=== PATIENT | female | born 1940 | race Caucasian/White ===

== ENCOUNTER → 2018-05-06 18:49 | Outpatient (REF) | payer OTHER, SELFPAY | LOC: LAB 18:49 | PROVIDERS: PCP Family Medicine; Visit Provider Podiatrist | DX: L84 Corns and callosities (principal); M20.42 Other hammer toe(s) (acquired), left foot; M79.675 Pain in left toe(s) | CPT/HCPCS: 87070; 87075; 87205 ==

== ENCOUNTER 2021-06-19 17:38 | Inpatient (IN) | payer OTHER, SELFPAY ==
[2021-06-19] VITALS (13 sets, daily range): BP systolic 106–109; BP diastolic 59–80; PULSE 84–95; RESP 24; TEMP 37.4; O2SAT 88–99; BMI 28.3
[2021-06-19 18:26] LABS: Add Manual Diff / Slide Review NO; Basophils Absolute Auto 100 /uL (0-100); Basophils Percent Auto 0.8 % (0-2); Eosinophils Absolute Auto 300 /uL (0-450); Eosinophils Percent Auto 2.2 % (2-4); Hemoglobin 11.3 g/dL (12.0-16.0); Lymphocytes Absolute Auto 1400 /uL (1100-4500); Mean Corpuscular HGB Conc 33.2 % (30-36); Mean Corpuscular Hemoglobin 29.4 PG (26-34); Mean Corpuscular Volume 88.5 fL (80-100); Monocytes Absolute Auto 1100 /uL (0-900); Monocytes Percent Auto 9.4 % (3-14); Neutrophils Absolute Auto 9000 /uL (1500-7000); Neutrophils Percent Auto 75.6 % (50-75); Platelet Count 394 X10^3/uL (150-400); Red Blood Cell Count 3.84 X10^6/uL (4.0-5.2); Red Cell Distribution Width 16.7 % (11.6-14.8); White Blood Cell Count 11.9 X10^3/uL (4.5-11.0)
[2021-06-19 18:35] LABS: RBC Urine None Seen (0-5/HPF)
[2021-06-19 18:37] LABS: Lactate (Lactic Acid) 1.2 mmol/L (0.7-2.1)
[2021-06-19 18:38] LABS: Alanine Aminotransferase 5 IU/L (<35); Albumin 3.2 g/dL (3.5-5.0); Alkaline Phosphatase 77 U/L (38-126); Aspartate Aminotransferase 19 IU/L (14-36); BUN Creatinine Ratio 28.9 (6-22); Bilirubin Total 0.7 mg/dL (0.2-1.3); Blood Urea Nitrogen 13 mg/dL (7-17); Carbon Dioxide 29 mmol/L (22-32); Chloride 101 mmol/L (98-107); Estimated Glomerular Filt Rate > 60.0 mL/min (>60); Globulin 3.2 g/dL (1.7-4.1); Glucose 139 mg/dL (80-110); HEMOLYSIS < 15 (0-50); Lipase 70 U/L (23-300); Potassium 3.5 mmol/L (3.4-5.1); Sodium 136 mmol/L (137-145); Total Protein 6.4 g/dL (6.3-8.2)
[2021-06-19 18:54] LABS: Procalcitonin 0.09 ng/mL (<0.5)
[2021-06-19 18:55] LABS: Appearance Urine UA TURBID; Bilirubin Urine UA NEGATIVE (NEGATIVE); Color Urine UA YELLOW; Glucose Urine UA NEGATIVE (Negative); Ketones Urine UA TRACE (NEGATIVE); Leukocyte Esterase Urine UA 2+ (NEGATIVE); Nitrite Urine UA NEGATIVE (Negative); Occult Blood Urine UA 2+ (Negative); Protein Urine UA 3+ (Negative); Specific Gravity Urine UA 1.025 (1.000-1.035); Urobilinogen Urine UA 0.2 E.U./dL (0.2)
[2021-06-19 19:00] LABS: Bacteria Urine Many (>30); WBC Urine >100/HPF (0-5/HPF)
[2021-06-19 19:01] LABS: Culture Indicated Urine Specimen Cultured
[2021-06-19 19:42] LABS: COVID19 - ADMIT (NP swab/PCR) Negative (Negative)
--- NOTE | 2021-06-19 20:03 | ED.GENADULT ---
HPI - General Adult General Chief complaint: Wound/Laceration Stated complaint: Sacral Decubitus Ulcer Time Seen by Provider: 06/19/21 18:03 Source: patient and EMS Mode of arrival: EMS Limitations: altered mental status History of Present Illness HPI narrative: 81-year-old lady with a history of Parkinson's disease, hypertension whose last week was living at an assisted living facility with he even home health coming every other day to help with sacral decubitus wound care. There were reports of trying to get this woman directly [facility] a [facility] facility so that she could have daily wound care and she was instructed to go through the emergency room 1st. Her daughter is present and helps with history. She has her usual parkinsonian complaints but no new fevers, cough, chills, nausea, vomiting, diarrhea. She has a Carlin catheter chronically in place she does note that she has been somewhat constipated recently Related Data Home Medications Medication Instructions Recorded Confirmed acetaminophen 500 mg tablet 500 mg PO Q8H PRN 06/19/21 06/19/21 carbidopa 25 mg-levodopa 100 mg 1 tab PO QID 06/19/21 06/19/21 tablet cranberry extract 650 mg capsule 650 mg PO DAILY 06/19/21 06/19/21 hydrocodone 5 mg-acetaminophen 325 5 - 325 tab PO Q6H PRN 06/19/21 06/19/21 mg tablet losartan 100 mg tablet 100 mg PO DAILY 06/19/21 06/19/21 mirtazapine 15 mg tablet 15 mg PO BEDTIME 06/19/21 06/19/21 omega 1-[id number]-fish oil 1,000 mg 1 cap PO DAILY 06/19/21 06/19/21 (120 mg-180 mg) capsule (Fish Oil) simvastatin 20 mg tablet 20 mg PO BEDTIME 06/19/21 06/19/21 Allergies Allergy/AdvReac Type Severity Reaction Status Date / Time No Known Drug Allergies Allergy Verified 06/19/21 18:20 Review of Systems Review of Systems Narrative: Remainder of complete review of systems is otherwise unremarkable except for that included in the HPI. Patient History Medical History Hyperlipidemia Hypertension Parkinson's disease dementia Surgical History History of tonsillectomy Family History Other Unknown family medical history Exam Narrative Exam Narrative: General: Frail woman able to participate somewhat with exam and history HEENT: Moist mucous membranes, normal sclera with reactive pupils, Respiratory: Lungs are clear to auscultation, no wheezing no rales no rhonchi. Full and symmetrical air movement Cardiac: Regular rate and rhythm no murmurs no bruits Abdomen: Soft, nontender, good bowel tones, no flank pain Skin: Warm and dry, large deep sacral decubitus ulcer that goes to the bone with bone and necrotic tissue visible. Neurologic: Parkinsonian tremor and rigidity, blank face ease but no localizing neurologic findings Extremities: No trauma, well perfused Psych: Cooperative, appropriate insight and affect Initial Vital Signs Initial Vital Signs: Vital Signs Temperature 99.3 F 06/19/21 17:40 Pulse Rate 95 H 06/19/21 17:40 Respiratory Rate 24 06/19/21 17:40 Blood Pressure 106/59 L 06/19/21 17:40 Pulse Oximetry 94 06/19/21 17:40 Course Orders Ordered: Acetaminophen (Acetaminophen 325 Mg Tablet) 650 mg PO Q6HR PRN PRN Reason: Fever/Mild Pain (1-3) Hydrocodone Bitart/Acetaminophen (Hydrocodone/Acet 5/325 Tablet) 1 tab PO Q6H PRN PRN Reason: Pain (Scale Score 4-6) Atorvastatin Calcium (Atorvastatin 20 Mg Tablet) 10 mg PO BEDTIME SUSHILA Carbidopa/Levodopa (Carbidopa-Levodopa 25/100 Tablet) 1 each PO Q6HR SUSHILA Last Admin: 06/20/21 00:47 Dose: Not Given Documented by: Admin: 06/19/21 20:51 Dose: 1 each Documented by: PHILLIP Carbidopa/Levodopa (Carbidopa-Levodopa 25/100 Tablet) 1 each PO QID SUSHILA Last Admin: 06/19/21 22:32 Dose: Not Given Documented by: PHILLIP Lactated Ringer's (Lactated Ringers) 1,000 mls @ 100 mls/hr IV CONT SUSHILA Last Admin: 06/19/21 22:25 Dose: 100 mls/hr Documented by: PHILLIP Piperacillin Sod/Tazobactam (Sod 3.375 gm/ Sodium Chloride) 100 mls @ 25 mls/hr IV Q8H [facility] Last Admin: 06/20/21 04:02 Dose: 25 mls/hr Documented by: PHILLIP Vancomycin HCl/Dextrose (Vancomycin) 1,500 mg in 300 mls @ 150 mls/hr IV NOW [facility] Last Infusion: 06/20/21 03:49 Dose: 0 mls/hr Documented by: Admin: 06/20/21 00:45 Dose: 150 mls/hr Documented by: PHILLIP Vancomycin HCl (Vancomycin) 1,000 mg in 200 mls @ 167 mls/hr IV Q12H [facility] Losartan Potassium (Losartan 50 Mg Tablet) 100 mg PO DAILY [facility] Mirtazapine (Mirtazapine 15 Mg Tablet) 15 mg PO BEDTIME [facility] Last Admin: 06/19/21 22:47 Dose: 15 mg Documented by: PHILLIP Naloxone HCl (Naloxone 0.4 Mg/Ml Vial) 0.2 mg IV Q2MIN PRN PRN Reason: Opiate Reversal Ondansetron HCl (Ondansetron 4 Mg/2 Ml Inj) 4 mg IV Q8HR PRN PRN Reason: Nausea And Vomiting Sennosides (Sennosides 8.6 Mg Tablet) 17.2 mg PO BEDTIME [facility] Last Admin: 06/19/21 22:49 Dose: 17.2 mg Documented by: PHILLIP Vancomycin HCl (Vancomycin Per Pharmacy) 1 request MIS NOW ONE Stop: 06/20/21 00:11 Discontinued Medications Piperacillin Sod/Tazobactam (Sod 4.5 gm/ Sodium Chloride) 100 mls @ 200 mls/hr IV NOW ONE Stop: 06/19/21 20:24 Last Infusion: 06/19/21 21:15 Dose: 0 mls/hr Documented by: Admin: 06/19/21 20:43 Dose: 200 mls/hr Documented by: PHILLIP Vancomycin HCl (Vancomycin Per Pharmacy) 1 request MISC NOW ONE Stop: 06/19/21 21:24 Last Admin: 06/20/21 00:48 Dose: Not Given Documented by: PHILLIP Vital Signs Vital signs: Vital Signs - 8 hr 06/19/21 17:40 06/19/21 18:18 06/19/21 18:30 Temperature 99.3 F Pulse Rate 95 H 94 H 91 H Respiratory Rate 24 Blood Pressure 106/59 L 109/80 Pulse Oximetry 94 92 92 Medical Decision Making Lab Data Result diagrams: 06/19/21 18:00 06/19/21 18:00 Labs: Lab Results 06/19/21 06/19/21 06/19/21 Range/Units 18:00 18:00 18:00 WBC 11.9 H (4.5-11.0) X10^3/uL RBC 3.84 L (4.0-5.2) X10^6/uL Hgb 11.3 L (12.0-16.0) g/dL Hct 34.0 L (36-46) % MCV 88.5 (80-100) fL MCH 29.4 (26-34) PG MCHC 33.2 (30-36) % RDW 16.7 H (11.6-14.8) % Plt Count 394 (150-400) X10^3/uL Neut % (Auto) 75.6 H (50-75) % Lymph % (Auto) 12.0 L (25-40) % [place] % (Auto) 9.4 (3-14) % Eos % (Auto) 2.2 (2-4) % Baso % (Auto) 0.8 (0-2) % Neut # (Auto) 9000 H (0122-7499) /uL Lymph # (Auto) 1400 (4685-3103) /uL [place] # (Auto) 1100 H (0-900) /uL Eos # (Auto) 300 (0-450) /uL Baso # (Auto) 100 (0-100) /uL Sodium 136 L (137-145) mmol/L Potassium 3.5 (3.4-5.1) mmol/L Chloride 101 (98-107) mmol/L Carbon Dioxide 29 (22-32) mmol/L BUN 13 (7-17) mg/dL Creatinine 0.45 L (0.52-1.04) mg/dL Estimated GFR > 60.0 (>60) mL/min BUN/Creatinine Ratio 28.9 H (6-22) Glucose 139 H (80-110) mg/dL Lactate 1.2 (0.7-2.1) mmol/L Calcium 10.0 (8.4-10.2) mg/dL Magnesium (1.6-2.3) mg/dL Total Bilirubin 0.7 (0.2-1.3) mg/dL AST 19 (14-36) IU/L ALT 5 (<35) IU/L Alkaline Phosphatase 77 (38-126) U/L Total Protein 6.4 (6.3-8.2) g/dL Albumin 3.2 L (3.5-5.0) g/dL Globulin 3.2 (1.7-4.1) g/dL Albumin/Globulin Ratio 1.0 (1.0-2.8) Lipase 70 (23-300) U/L Procalcitonin (<0.5) ng/mL Urine Color Urine Appearance Urine pH (4.5-8.0) Ur Specific [place] (1.000-1.035) Urine Protein (Negative) Urine Glucose (UA) (Negative) g/dL Urine Ketones (NEGATIVE) Urine Occult Blood (Negative) Urine Nitrate (Negative) Urine Bilirubin (NEGATIVE) Urine Urobilinogen (0.2) E.U./dL Ur Leukocyte Esterase (NEGATIVE) Urine RBC (0-5/HPF) Urine WBC (0-5/HPF) Urine Bacteria (None) Urine Yeast (None) Ur Culture Indicated? SARS-CoV-2 (PCR) (Negative) 06/19/21 06/19/21 06/19/21 Range/Units 18:00 18:00 18:14 WBC (4.5-11.0) X10^3/uL RBC (4.0-5.2) X10^6/uL Hgb (12.0-16.0) g/dL Hct (36-46) % MCV (80-100) fL MCH (26-34) PG MCHC (30-36) % RDW (11.6-14.8) % Plt Count (150-400) X10^3/uL Neut % (Auto) (50-75) % Lymph % (Auto) (25-40) % [place] % (Auto) (3-14) % Eos % (Auto) (2-4) % Baso % (Auto) (0-2) % Neut # (Auto) (1608-1011) /uL Lymph # (Auto) (4977-7829) /uL [place] # (Auto) (0-900) /uL Eos # (Auto) (0-450) /uL Baso # (Auto) (0-100) /uL Sodium (137-145) mmol/L Potassium (3.4-5.1) mmol/L Chloride (98-107) mmol/L Carbon Dioxide (22-32) mmol/L BUN (7-17) mg/dL Creatinine (0.52-1.04) mg/dL Estimated GFR (>60) mL/min BUN/Creatinine Ratio (6-22) Glucose (80-110) mg/dL Lactate (0.7-2.1) mmol/L Calcium (8.4-10.2) mg/dL Magnesium 1.7 (1.6-2.3) mg/dL Total Bilirubin (0.2-1.3) mg/dL AST (14-36) IU/L ALT (<35) IU/L Alkaline Phosphatase (38-126) U/L Total Protein (6.3-8.2) g/dL Albumin (3.5-5.0) g/dL Globulin (1.7-4.1) g/dL Albumin/Globulin Ratio (1.0-2.8) Lipase (23-300) U/L Procalcitonin 0.09 (<0.5) ng/mL Urine Color Yellow Urine Appearance Turbid Urine pH 5.0 (4.5-8.0) Ur Specific [place] 1.025 (1.000-1.035) Urine Protein 3+ H (Negative) Urine Glucose (UA) Negative (Negative) g/dL Urine Ketones Trace H (NEGATIVE) Urine Occult Blood 2+ H (Negative) Urine Nitrate Negative (Negative) Urine Bilirubin Negative (NEGATIVE) Urine Urobilinogen 0.2 (0.2) E.U./dL Ur Leukocyte Esterase 2+ H (NEGATIVE) Urine RBC None seen (0-5/HPF) Urine WBC >100/hpf H (0-5/HPF) Urine Bacteria Many (>30) H (None) Urine Yeast 5-10/hpf H (None) Ur Culture Indicated? Specimen cultured SARS-CoV-2 (PCR) (Negative) 06/19/21 Range/Units 18:16 WBC (4.5-11.0) X10^3/uL RBC (4.0-5.2) X10^6/uL Hgb (12.0-16.0) g/dL Hct (36-46) % MCV (80-100) fL MCH (26-34) PG MCHC (30-36) % RDW (11.6-14.8) % Plt Count (150-400) X10^3/uL Neut % (Auto) (50-75) % Lymph % (Auto) (25-40) % [place] % (Auto) (3-14) % Eos % (Auto) (2-4) % Baso % (Auto) (0-2) % Neut # (Auto) (3422-0982) /uL Lymph # (Auto) (3533-3682) /uL [place] # (Auto) (0-900) /uL Eos # (Auto) (0-450) /uL Baso # (Auto) (0-100) /uL Sodium (137-145) mmol/L Potassium (3.4-5.1) mmol/L Chloride (98-107) mmol/L Carbon Dioxide (22-32) mmol/L BUN (7-17) mg/dL Creatinine (0.52-1.04) mg/dL Estimated GFR (>60) mL/min BUN/Creatinine Ratio (6-22) Glucose (80-110) mg/dL Lactate (0.7-2.1) mmol/L Calcium (8.4-10.2) mg/dL Magnesium (1.6-2.3) mg/dL Total Bilirubin (0.2-1.3) mg/dL AST (14-36) IU/L ALT (<35) IU/L Alkaline Phosphatase (38-126) U/L Total Protein (6.3-8.2) g/dL Albumin (3.5-5.0) g/dL Globulin (1.7-4.1) g/dL Albumin/Globulin Ratio (1.0-2.8) Lipase (23-300) U/L Procalcitonin (<0.5) ng/mL Urine Color Urine Appearance Urine pH (4.5-8.0) Ur Specific [place] (1.000-1.035) Urine Protein (Negative) Urine Glucose (UA) (Negative) g/dL Urine Ketones (NEGATIVE) Urine Occult Blood (Negative) Urine Nitrate (Negative) Urine Bilirubin (NEGATIVE) Urine Urobilinogen (0.2) E.U./dL Ur Leukocyte Esterase (NEGATIVE) Urine RBC (0-5/HPF) Urine WBC (0-5/HPF) Urine Bacteria (None) Urine Yeast (None) Ur Culture Indicated? SARS-CoV-2 (PCR) Negative (Negative) Imaging Data CT scan - abdomen/pelvis: Radiologist's Impression: FINDINGS: Image quality: Excellent. Lung bases: Fibrotic changes at both lung bases. There is a large paraesophageal hiatal hernia. Heart: Moderate to heavy coronary artery calcification. ABDOMEN: Liver: Unremarkable. Gallbladder: Unremarkable. Biliary ducts: Unremarkable. Pancreas: Unremarkable. Spleen: Unremarkable. Adrenal Glands: Unremarkable. Kidneys and Ureters: Unremarkable. Stomach and Bowel: Moderate quantity of solid stool present in the colon. Prominent stool ball in the rectum. There is moderate perirectal fat stranding. Stomach, small bowel loops, and colon are otherwise unremarkable. The appendix is not visible. Peritoneum: No abnormal intraperitoneal fluid. No free air. Ventral Wall: No hernias. Abdominal Nodes: No retroperitoneal or mesenteric adenopathy by size criteria. Vessels: Aorta and inferior vena cava are normal in size. PELVIS: Pelvic Organs: The uterus is present and anteriorly displaced by rectal stool ball. Bladder: Urinary bladder is decompressed with a Carlin catheter.. Pelvic Nodes: No enlarged lymph nodes. Miscellaneous: There is moderate posterior perirectal fat stranding. There is a tract from the gluteal fold through the subcutaneous tissue to the level of the sacrococcygeal articulation. There is widening of the sacrococcygeal joint, fragmentation of the distal cortex, and punctate foci of soft tissue gas. There is a thickened rim around the fluid collection which extends to involve the right gluteus muscle just to the right of midline. This area measures roughly 5.2 x 2.9 x 3.0 cm Bones: Diffuse osteopenia. There is grade 1 anterolisthesis L4 on five with bony ankylosis of the vertebral bodies resulting in angulation of the spinal canal from L3-4 to L5-S1. Moderate degenerative change in the hip joints. IMPRESSION: 1. Ulceration in the gluteal fold extends inward to involve and disrupt the sacrococcygeal joint where subcutaneous and partially intramuscular abscess is present, and there is almost certainly osteomyelitis. 2. There is prominent edema in the presacral/perirectal fat 3. Severe degenerative change of the lower lumbar spine appears chronic. 4. Colonic and rectal obstipation. Dictated by: Leatha Lopez M.D. on 06/19/2021 at 21:05 [facility] Narrative Medical decision making narrative: 81-year-old woman with indwelling Carlin catheter but abnormal urine will be cultured may be simply baseline overgrowth with Carlin catheter. Large sacral decubitus with significant necrosis will need surgical debridement and possible plastics revision. Presumed osteomyelitis of the sacrum without overt sepsis. She started on Zosyn in the emergency department. Care is reviewed with Dr. Ruiz at 8:30 p.m. he will consult on the patient for help with surgical care of the wound Care is reviewed with Ms. Jean, hospitalist CLAIRE at 8:40 p.m.. She will be the primary admitting provider for the patient. Findings and concerns are reviewed with the patient and her daughter both are relieved that she will be admitted to the hospital with more detailed care being given to her sacral wound. Will ask for a rotating or air bed to prevent worsening of the wound. Review code status with patient and her daughter, she is DNR but would be willing to consider intubation for brief surgical intervention and does want full medical care otherwise. Discharge Plan Departure Patient Disposition: Admitted As Inpatient Clinical Impression: Decubitus ulcer of sacral region, stage 4, Bacterial UTI, Abscess Osteomyelitis Qualifiers: Osteomyelitis type: other acute Osteomyelitis location: other site Qualified Code(s): M86.18 - Other acute osteomyelitis, other site Admit Date/Time: 06/19/21 21:11 Admit Provider: Josey Jean
--- NOTE | 2021-06-19 20:23 | DI.CT.S_ITS ---
PROCEDURE: CT ABDOMEN PELVIS W CON INDICATIONS: sacral decubuitus TECHNIQUE: After the administration of intravenous contrast, axial sections acquired from the lung bases to the pubic symphysis. Coronal and sagittal reformats were performed. For radiation dose reduction, the following was used: automated exposure control, adjustment of mA and/or kV according to patient size. COMPARISON: None. FINDINGS: Image quality: Excellent. Lung bases: Fibrotic changes at both lung bases. There is a large paraesophageal hiatal hernia. Heart: Moderate to heavy coronary artery calcification. ABDOMEN: Liver: Unremarkable. Gallbladder: Unremarkable. Biliary ducts: Unremarkable. Pancreas: Unremarkable. Spleen: Unremarkable. Adrenal Glands: Unremarkable. Kidneys and Ureters: Unremarkable. Stomach and Bowel: Moderate quantity of solid stool present in the colon. Prominent stool ball in the rectum. There is moderate perirectal fat stranding. Stomach, small bowel loops, and colon are otherwise unremarkable. The appendix is not visible. Peritoneum: No abnormal intraperitoneal fluid. No free air. Ventral Wall: No hernias. Abdominal Nodes: No retroperitoneal or mesenteric adenopathy by size criteria. Vessels: Aorta and inferior vena cava are normal in size. PELVIS: Pelvic Organs: The uterus is present and anteriorly displaced by rectal stool ball. Bladder: Urinary bladder is decompressed with a Carlin catheter.. Pelvic Nodes: No enlarged lymph nodes. Miscellaneous: There is moderate posterior perirectal fat stranding. There is a tract from the gluteal fold through the subcutaneous tissue to the level of the sacrococcygeal articulation. There is widening of the sacrococcygeal joint, fragmentation of the distal cortex, and punctate foci of soft tissue gas. There is a thickened rim around the fluid collection which extends to involve the right gluteus muscle just to the right of midline. This area measures roughly 5.2 x 2.9 x 3.0 cm Bones: Diffuse osteopenia. There is grade 1 anterolisthesis L4 on five with bony ankylosis of the vertebral bodies resulting in angulation of the spinal canal from L3-4 to L5-S1. Moderate degenerative change in the hip joints. IMPRESSION: 1. Ulceration in the gluteal fold extends inward to involve and disrupt the sacrococcygeal joint where subcutaneous and partially intramuscular abscess is present, and there is almost certainly osteomyelitis. 2. There is prominent edema in the presacral/perirectal fat 3. Severe degenerative change of the lower lumbar spine appears chronic. 4. Colonic and rectal obstipation. Dictated by: Leatha Lopez M.D. on 06/19/2021 at 21:05 Approved by: Leatha Lopez M.D. on 06/19/2021 at 21:15
[2021-06-19] MEDS: PIPERACILLIN/TAZO 4.5 GM in SODIUM CHLORIDE 0.9% 100 ML 200 ML IV (20:43)
[2021-06-19] MEDS: CARBIDOPA-LEVODOPA 25/100 TABLET 1 EACH PO (20:51)
[2021-06-19 21:41] LABS: Magnesium 1.7 mg/dL (1.6-2.3)
[2021-06-19] MEDS: LACTATED RINGERS 1,000 ML 100 ML IV (22:25)
[2021-06-19] MEDS: MIRTAZAPINE 15 MG TABLET PO (22:47)
[2021-06-19] MEDS: SENNOSIDES 8.6 MG TABLET 17.2 MG PO (22:49)
[2021-06-20] VITALS (31 sets, daily range): BP systolic 90–121; BP diastolic 46–71; PULSE 69–121; RESP 16–20; TEMP 36.1–36.8; O2SAT 92–98; BMI 28.3
[2021-06-20] MEDS: VANCOMYCIN 1,500 MG/300 ML PIGGYBACK 150 MG IV (00:45)
[2021-06-20] MEDS: PIPERACILLIN/TAZO 3.375 GM in SODIUM CHLORIDE 0.9% 100 ML 25 ML IV ×3 (04:02→19:50)
--- NOTE | 2021-06-20 05:21 | P.HP_ITS ---
History of Present Illness History of Present Illness Date Patient Seen: 06/19/21 Time Patient Seen: 21:31 Chief complaint: Sacral Decubitus Ulcer Narrative: Patient is an 81-year-old female Amna Dunne who presented to the ED via EMS from [facility] in [place] for a chief complaint of large sacral decubitus ulcer that is not resolving. Apparently the patient had been receiving home home health wound care visits in the facility for several weeks without resolution of this decubitus ulcer and so she was requested to come to the hospital. Patient has an altered mental status due to her diagnosis of Parkinson's and was unable to participate in her HPI or ROS. And the ED chart lacked any documentation, had no further information for this patient. Dr. Ruiz did consult in the ED and stated that she would consult on the patient in the morning. I did go down and do admit exam of the patient in the ED, patient was resting and dressing had been placed back on and I was unable to assess the decubitus ulcer appropriately at that time. Dr. Macedo did verbalize that it was a significant sacral decubitus ulcer Stage 4. Patient's vitals upon admit febrile with a temp of 99.3?, BP 109/80 which is baseline for this patient, HR 84, RR 24, O2 saturation 93% on room air. Patient had a mildly elevated WBC 11.9 with a left shift neutrophils 9000, HGB 11.3, HCT 34. Lactate, lipase, procalcitonin were all within normal limits, albumin sli ghtly decreased at 3.2. Patient urine was positive for UTI and was sent for culture patient has a catheter in, so most likely catheter related UTI. Patient was orientated to place and person but was unable to provide any further information. Patient admitted for sacral decubitus ulcer and UTI. Patient History Medical History (Updated 06/20/21 @ 05:33 by LYNDSAY Cortes) Hyperlipidemia Hypertension Parkinson's disease dementia Surgical History (Updated 06/20/21 @ 05:31 by LYNDSAY Cortes) History of tonsillectomy Family & Social History Family History (Updated 06/20/21 @ 05:32 by LYNDSAY Cortes) Other Unknown family medical history Safety & Behavioral: Feels Safe in Current Yes-patient lives at [facility] in [place], patient's spouse last week. Environment Tobacco & Substance use: Unknown if patient drinks alcohol, appears to be a nonsmoker. Meds Home Medications and Allergies Home Medications Medication Instructions Recorded Confirmed Type acetaminophen 500 mg tablet 500 mg PO Q8H PRN 06/19/21 06/19/21 History carbidopa 25 mg-levodopa 100 mg 1 tab PO QID 06/19/21 06/19/21 History tablet cranberry extract 650 mg capsule 650 mg PO DAILY 06/19/21 06/19/21 History hydrocodone 5 mg-acetaminophen 325 5 - 325 tab PO Q6H PRN 06/19/21 06/19/21 History mg tablet losartan 100 mg tablet 100 mg PO DAILY 06/19/21 06/19/21 History mirtazapine 15 mg tablet 15 mg PO BEDTIME 06/19/21 06/19/21 History omega 4-bdl-slc-fish oil 1,000 mg 1 cap PO DAILY 06/19/21 06/19/21 History (120 mg-180 mg) capsule (Fish Oil) simvastatin 20 mg tablet 20 mg PO BEDTIME 06/19/21 06/19/21 History Allergies Allergy/AdvReac Type Severity Reaction Status Date / Time No Known Drug Allergies Allergy Verified 06/19/21 18:20 Review of Systems Review of Systems Narrative: ROS unable to obtain due to patient's Parkinson's dementia. Exam Vital Signs (past 8 hours): Oxygen Delivery Method Room Air Narrative Exam Narrative: General: Patient is a well-developed, well-nourished female sleeping, in no distress at this time. HEENT: Normocephalic, atraumatic, extraocular muscles intact, oral pharynx is clear and mucous membranes are dry. Neck is supple and symmetric, trachea is midline, no adenopathy, no thyroid enlargement, nontender, no masses palpated. Negative for JVD Chest: no nasal flaring, retractions, or tachypneic labored Lungs: Auscultation of all lung hope are clear without adventitious sounds, wheezes, rhonchi, or rales. Cardio: regular rate and rhythm without murmur, rubs, or gallops, no carotid bruit, no cardiac pulsations present. Abdomen: Soft nontender, negative for organomegaly, or masses. Bowel sounds are present in all 4 quadrants without guarding or rebound, no CVA tenderness. Musculoskeletal: Muscle tone is equal within normal limits, no deformity, crepitus, effusions, cyanosis,or edema present. intact radial and pedal pulses are normal. Skin: Patient has a large decubitus ulcer stage IV to the sacral region-was unable to assess at the time of admit. Neuro: Alert and orientated x2, sensation to touch intact, no gross deficits noted of cranial nerves. Psych: Patient has a well-kept appearance. Objective Labs Result Diagrams: 06/19/21 18:00 06/19/21 18:00 Labs: Laboratory Results - last 24 hr 06/19/21 06/19/21 06/19/21 18:00 18:00 18:00 WBC 11.9 H RBC 3.84 L Hgb 11.3 L Hct 34.0 L MCV 88.5 MCH 29.4 MCHC 33.2 RDW 16.7 H Plt Count 394 Neut % (Auto) 75.6 H Lymph % (Auto) 12.0 L [place] % (Auto) 9.4 Eos % (Auto) 2.2 Baso % (Auto) 0.8 Neut # (Auto) 9000 H Lymph # (Auto) 1400 [place] # (Auto) 1100 H Eos # (Auto) 300 Baso # (Auto) 100 Sodium 136 L Potassium 3.5 Chloride 101 Carbon Dioxide 29 BUN 13 Creatinine 0.45 L Estimated GFR > 60.0 BUN/Creatinine Ratio 28.9 H Glucose 139 H Lactate 1.2 Calcium 10.0 Magnesium Total Bilirubin 0.7 AST 19 ALT 5 Alkaline Phosphatase 77 Total Protein 6.4 Albumin 3.2 L Globulin 3.2 Albumin/Globulin Ratio 1.0 Lipase 70 Procalcitonin Urine Color Urine Appearance Urine pH Ur Specific [place] Urine Protein Urine Glucose (UA) Urine Ketones Urine Occult Blood Urine Nitrate Urine Bilirubin Urine Urobilinogen Ur Leukocyte Esterase Urine RBC Urine WBC Urine Bacteria Urine Yeast Ur Culture Indicated? SARS-CoV-2 (PCR) 06/19/21 06/19/21 06/19/21 18:00 18:00 18:14 WBC RBC Hgb Hct MCV MCH MCHC RDW Plt Count Neut % (Auto) Lymph % (Auto) [place] % (Auto) Eos % (Auto) Baso % (Auto) Neut # (Auto) Lymph # (Auto) [place] # (Auto) Eos # (Auto) Baso # (Auto) Sodium Potassium Chloride Carbon Dioxide BUN Creatinine Estimated GFR BUN/Creatinine Ratio Glucose Lactate Calcium Magnesium 1.7 Total Bilirubin AST ALT Alkaline Phosphatase Total Protein Albumin Globulin Albumin/Globulin Ratio Lipase Procalcitonin 0.09 Urine Color Yellow Urine Appearance Turbid Urine pH 5.0 Ur Specific [place] 1.025 Urine Protein 3+ H Urine Glucose (UA) Negative Urine Ketones Trace H Urine Occult Blood 2+ H Urine Nitrate Negative Urine Bilirubin Negative Urine Urobilinogen 0.2 Ur Leukocyte Esterase 2+ H Urine RBC None seen Urine WBC >100/hpf H Urine Bacteria Many (>30) H Urine Yeast 5-10/hpf H Ur Culture Indicated? Specimen cultured SARS-CoV-2 (PCR) 06/19/21 18:16 WBC RBC Hgb Hct MCV MCH MCHC RDW Plt Count Neut % (Auto) Lymph % (Auto) [place] % (Auto) Eos % (Auto) Baso % (Auto) Neut # (Auto) Lymph # (Auto) [place] # (Auto) Eos # (Auto) Baso # (Auto) Sodium Potassium Chloride Carbon Dioxide BUN Creatinine Estimated GFR BUN/Creatinine Ratio Glucose Lactate Calcium Magnesium Total Bilirubin AST ALT Alkaline Phosphatase Total Protein Albumin Globulin Albumin/Globulin Ratio Lipase Procalcitonin Urine Color Urine Appearance Urine pH Ur Specific [place] Urine Protein Urine Glucose (UA) Urine Ketones Urine Occult Blood Urine Nitrate Urine Bilirubin Urine Urobilinogen Ur Leukocyte Esterase Urine RBC Urine WBC Urine Bacteria Urine Yeast Ur Culture Indicated? SARS-CoV-2 (PCR) Negative Assessment & Plan Assessment & Plan narrative: 1. Sacral decubitus ulcer stage IV, acute on chronic, present on admission -WBC 11.9 with a left shift neutrophils 9000, HGB 11.3, HCT 34. -rule out osteomyelitis, gas gangrene necrotizing fasciitis,staph,MRSA-blood & wound cultures pending. -monitor for hyponatremia elevated CPK or AST -wells criteria score:1, Sofa score: 1 - vital signs q.4 hours, intake and output monitored Q shift, weight measure daily, IV fluids: LR at 100 cc/hour, following 3 L bolus, reposition patient frequently. -patient had a dose of Zosyn and vancomycin in the ED, ordered vancomycin per pharmacy -daily labs ordered CBC, CMP, PT INR, ESR, SED rate (r/o osteo) in am -Dr. Ruiz consult -patient NPO for possible surgical procedure today and held Lovenox 2. Parkinson's dementia, acute on chronic, present on admission -continue patient's carbidopa-levodopa and Remeron 3. Essential hypertension, chronic, present on admission -continue patient's losartan 4. Hyperlipidemia, chronic, present on admission -continue patient's simvastatin Code status: DNR Surrogate decision maker: Estrella Hernandez daughter-DPOA COVID PCR: Negative COVID vaccination: Unknown DVT/VTE prophylaxis: Contraindicated at this time due to possible pending surgi bryson intervention, SCDs only Estimated length of stay: Likely greater than 2 midnights due to wound care, IV antibiotics and surgical interventions.
[2021-06-20 06:50] LABS: Add Manual Diff / Slide Review NO; Basophils Absolute Auto 100 /uL (0-100); Basophils Percent Auto 0.8 % (0-2); Eosinophils Absolute Auto 400 /uL (0-450); Eosinophils Percent Auto 4.3 % (2-4); Hematocrit 33.8 % (36-46); Hemoglobin 10.7 g/dL (12.0-16.0); INR 1.2 (0.9-1.3); Lymphocytes Absolute Auto 1600 /uL (1100-4500); Lymphocytes Percent Auto 15.4 % (25-40); Mean Corpuscular HGB Conc 31.7 % (30-36); Mean Corpuscular Hemoglobin 28.4 PG (26-34); Mean Corpuscular Volume 89.3 fL (80-100); Monocytes Absolute Auto 1100 /uL (0-900); Monocytes Percent Auto 10.4 % (3-14); Neutrophils Absolute Auto 7200 /uL (1500-7000); Neutrophils Percent Auto 69.1 % (50-75); Platelet Count 364 X10^3/uL (150-400); Prothrombin Time 13.7 SECONDS (10.1-12.7); Red Blood Cell Count 3.79 X10^6/uL (4.0-5.2); Red Cell Distribution Width 16.5 % (11.6-14.8); White Blood Cell Count 10.4 X10^3/uL (4.5-11.0)
--- NOTE | 2021-06-20 06:53 | P.CONS_ITS ---
History of Present Illness Consult details Date Patient Seen: 06/20/21 Time Patient Seen: 06:54 Chief complaint: Sacral Decubitus Ulcer Narrative: 81-year-old woman admitted for urinary tract infection and sacral decubitus ulcer. History of Parkinson's and dementia. Apparently had been receiving some for wound care to the ulcer for long time things acutely worsened and her daughter brought her to the emergency room last night. Found to have a urinary tract infection in addition to a unstageable sacral ulcer. CT abdomen pelvis in demonstrates sacral ulcer with a 5 cm abscess. Meds Home Medications and Allergies Home Medications Medication Instructions Recorded Confirmed Type acetaminophen 500 mg tablet 500 mg PO Q8H PRN 06/19/21 06/19/21 History carbidopa 25 mg-levodopa 100 mg 1 tab PO QID 06/19/21 06/19/21 History tablet cranberry extract 650 mg capsule 650 mg PO DAILY 06/19/21 06/19/21 History hydrocodone 5 mg-acetaminophen 325 5 - 325 tab PO Q6H PRN 06/19/21 06/19/21 History mg tablet losartan 100 mg tablet 100 mg PO DAILY 06/19/21 06/19/21 History mirtazapine 15 mg tablet 15 mg PO BEDTIME 06/19/21 06/19/21 History omega 7-zkb-uuk-fish oil 1,000 mg 1 cap PO DAILY 06/19/21 06/19/21 History (120 mg-180 mg) capsule (Fish Oil) simvastatin 20 mg tablet 20 mg PO BEDTIME 06/19/21 06/19/21 History Allergies Allergy/AdvReac Type Severity Reaction Status Date / Time No Known Drug Allergies Allergy Verified 06/19/21 18:20 Review of Systems Review of Systems ROS: Yes unobtainable due to mental condition Exam Vital Signs (past 8 hours): Oxygen Delivery Method Room Air Narrative Exam Narrative: GENERAL-elderly woman, no acute distress CVS- regular rate, no peripheral edema RESP-unlabored respiratory effort, no audible wheezing GI-soft, nontender nondistended SKIN-unstagable ducubuitus ulcer with purulent drainage NEURO-alert disoriented Objective Labs Result Diagrams: 06/20/21 06:33 06/19/21 18:00 Labs: Laboratory Results - last 24 hr 06/19/21 06/19/21 06/19/21 18:00 18:00 18:00 WBC 11.9 H RBC 3.84 L Hgb 11.3 L Hct 34.0 L MCV 88.5 MCH 29.4 MCHC 33.2 RDW 16.7 H Plt Count 394 Neut % (Auto) 75.6 H Lymph % (Auto) 12.0 L [place] % (Auto) 9.4 Eos % (Auto) 2.2 Baso % (Auto) 0.8 Neut # (Auto) 9000 H Lymph # (Auto) 1400 [place] # (Auto) 1100 H Eos # (Auto) 300 Baso # (Auto) 100 PT INR Sodium 136 L Potassium 3.5 Chloride 101 Carbon Dioxide 29 BUN 13 Creatinine 0.45 L Estimated GFR > 60.0 BUN/Creatinine Ratio 28.9 H Glucose 139 H Lactate 1.2 Calcium 10.0 Magnesium Total Bilirubin 0.7 AST 19 ALT 5 Alkaline Phosphatase 77 Total Protein 6.4 Albumin 3.2 L Globulin 3.2 Albumin/Globulin Ratio 1.0 Lipase 70 Procalcitonin Urine Color Urine Appearance Urine pH Ur Specific [place] Urine Protein Urine Glucose (UA) Urine Ketones Urine Occult Blood Urine Nitrate Urine Bilirubin Urine Urobilinogen Ur Leukocyte Esterase Urine RBC Urine WBC Urine Bacteria Urine Yeast Ur Culture Indicated? SARS-CoV-2 (PCR) 06/19/21 06/19/21 06/19/21 18:00 18:00 18:14 WBC RBC Hgb Hct MCV MCH MCHC RDW Plt Count Neut % (Auto) Lymph % (Auto) [place] % (Auto) Eos % (Auto) Baso % (Auto) Neut # (Auto) Lymph # (Auto) [place] # (Auto) Eos # (Auto) Baso # (Auto) PT INR Sodium Potassium Chloride Carbon Dioxide BUN Creatinine Estimated GFR BUN/Creatinine Ratio Glucose Lactate Calcium Magnesium 1.7 Total Bilirubin AST ALT Alkaline Phosphatase Total Protein Albumin Globulin Albumin/Globulin Ratio Lipase Procalcitonin 0.09 Urine Color Yellow Urine Appearance Turbid Urine pH 5.0 Ur Specific [place] 1.025 Urine Protein 3+ H Urine Glucose (UA) Negative Urine Ketones Trace H Urine Occult Blood 2+ H Urine Nitrate Negative Urine Bilirubin Negative Urine Urobilinogen 0.2 Ur Leukocyte Esterase 2+ H Urine RBC None seen Urine WBC >100/hpf H Urine Bacteria Many (>30) H Urine Yeast 5-10/hpf H Ur Culture Indicated? Specimen cultured SARS-CoV-2 (PCR) 06/19/21 06/20/2106/20/21 18:16 06:33 06:33 WBC 10.4 RBC 3.79 L Hgb 10.7 L Hct 33.8 L MCV 89.3 MCH 28.4 MCHC 31.7 RDW 16.5 H Plt Count 364 Neut % (Auto) 69.1 Lymph % (Auto) 15.4 L [place] % (Auto) 10.4 Eos % (Auto) 4.3 H Baso % (Auto) 0.8 Neut # (Auto) 7200 H Lymph # (Auto) 1600 [place] # (Auto) 1100 H Eos # (Auto) 400 Baso # (Auto) 100 PT 13.7 H INR 1.2 Sodium Potassium Chloride Carbon Dioxide BUN Creatinine Estimated GFR BUN/Creatinine Ratio Glucose Lactate Calcium Magnesium Total Bilirubin AST ALT Alkaline Phosphatase Total Protein Albumin Globulin Albumin/Globulin Ratio Lipase Procalcitonin Urine Color Urine Appearance Urine pH Ur Specific [place] Urine Protein Urine Glucose (UA) Urine Ketones Urine Occult Blood Urine Nitrate Urine Bilirubin Urine Urobilinogen Ur Leukocyte Esterase Urine RBC Urine WBC Urine Bacteria Urine Yeast Ur Culture Indicated? SARS-CoV-2 (PCR) Negative Assessment & Plan Assessment and plan (1) Decubitus ulcer of sacral region, stage 4: Status: Acute Assessment & Plan narrative: 81F with dementia and parkinson's with a sacral decubitus ulcer and associated abscess. -Admission to medicine -OR today for incision and drainage of sacral decubitus ulcer. Will need [facility] wound care. -NPO/IVF
[2021-06-20 06:54] LABS: Blood Urea Nitrogen 10 mg/dL (7-17); Calcium 9.9 mg/dL (8.4-10.2); Carbon Dioxide 28 mmol/L (22-32); Chloride 103 mmol/L (98-107); Estimated Glomerular Filt Rate > 60.0 mL/min (>60); Glucose 105 mg/dL (80-110); HEMOLYSIS < 15 (0-50); Potassium 3.7 mmol/L (3.4-5.1); Sodium 136 mmol/L (137-145)
[2021-06-20 07:04] LABS: NT-proBNP (BNP-Adult 18+) 293 pg/mL (<450)
[2021-06-20 07:15] LABS: C-Reactive Protein Quant 14.2 mg/dL (<1.0)
[2021-06-20 07:18] LABS: Erythrocyte Sedimentation Rate 59 MM/HR (0-20)
--- NOTE | 2021-06-20 07:28 | PC.NURSE ---
Pt has been stable all night, recieved IV ABX as ordered. Carlin cath is patent draining cloudy yellow urine. vs stable.
--- NOTE | 2021-06-20 09:18 | DIET.PN ---
Dietary Progress Note RD Note: 81y F c prior hx dementia and Parkinson's admitted for UTI and unstagable sacral decubitus. RD sending ONS Arsen bid to support wound healing, please encourage consumption.
[2021-06-20] MEDS: VANCOMYCIN 750 MG/150 ML PIGGYBACK 150 MG IV ×2 (09:58→18:06)
--- NOTE | 2021-06-20 10:26 | OT.IPNOTE ---
Pt to have surgery today , per hospitalist hold OT eval for today. To check on pt tomorrow.
--- NOTE | 2021-06-20 10:54 | PC.NURSE ---
Patient admitted to via bed from ED at 0748. Patient stable. A/O to self and situation. VSS. Skin assessment and wound assessment completed. Patient on NC 1-2L to maintain oxygen >94%. Patient denies feeling SOB. Generalized edema noted, ann area is swollen, indwelling catheter patent, draining cloudy, dark yellow urine with sediment. Patient endorses pain in L knee. Noted wound on R heel. Coccyx wound redressed with Allyvn. Patient tolerated. Patient remains NPO. IVF LR @100 infusing with intermittent ABX. Patient repositioned Q1H. Heels floated. Daughter Estrella remains bedside.
--- NOTE | 2021-06-20 11:38 | PT.IIE ---
Current Diagnoses Pressure ulcer of sacral region, stage 4 (06/19/21) Surgery Performed Operation Date: 06/20/21 16:15 <No data on this case meets the specified criteria> Medical History (Last Reviewed 06/20/21 @ 06:59 by Timoteo Ruiz MD) Hyperlipidemia Hypertension Parkinson's disease dementia Physical Therapy Inpatient Evaluation/Re-Eval M1 PT/OT-IP Prior Functional Status Start: 06/20/21 14:12 Freq: NEEDED Status: Active Protocol: Document 06/20/21 11:38 AB (Rec: 06/20/21 15:00 AB [email or web address]) Medical Review Prior Functional Status Medical History Reviewed Yes Communication able to answer questions but unable to provide accurate/ detailed info Mobility and Gait pt's daughter in room with pt and anwered questions regarding home set up and PLOF Daughter stated that pt moved to [facility] ~ 3 month ago and prior to that was at home and able to ambulate using 4WW SBA. stated that after ~ 1 week of being at [facility], pt's BLE started to not work per daughter and was needing 2 person assist with mobility and unable to ambulate. stated that staff was still able to transfer her on a w/c and pt usually stays on her w/ c until last month where in pt has been basically bed bound and only gets up when she has to take her somewhere due to her scaral decubitus ulcer. stated that [facility] staff transfer her with 2 person pivot transfer because they are not allowed to use a mechanical lift for transfers. stated that pt has been receiving homehealth OT. pt has not been ambulatory for ~ 3 month and was bed bound for ~ 1 month Social History Living Arrangements Assisted Living Home Equipment Front Wheel Walker,Manual Wheelchair,Hospital Bed M2 PT-IP Current Condition Start: 06/20/21 14:12 Freq: NEEDED Status: Active Protocol: Document 06/20/21 11:38 AB (Rec: 06/20/21 15:00 AB [email or web address]) Physical Therapy Current Condition Current Condition Evaluation Date 06/20/21 Treatment Diagnosis Stage 4 sacral decubitus ulcer ; PD; generalized weakness Onset Date 06/19/21 Precautions Other Precautions Stage 4 sacral ulcer M3 PT-IP Subjective Start: 06/20/21 14:12 Freq: NEEDED Status: Active Protocol: Document 06/20/21 11:38 AB (Rec: 06/20/21 15:00 AB [email or web address]) Subjective Physical Therapy Visit Type Type Initial Evaluation Visit Start Time 11:38 Visit Stop Time 12:20 Total Visit Minutes 42 Number of AUTO SERVICE DISPATCHER Visits 0 Physical Therapy Visit Comments Patient Comments daughter in room and pt agreed to do PT; pt c/o L LE pain and daughter stated that pt needs to be repositioned and wants PT to work with pt Therapy Pain Assessment Pain When Pain Assessed At Rest Pain Present Pain Present Pain Reported Location Left Leg Scale Used pain scale not stated M4 PT-IP Mobility and Gait Start: 06/20/21 14:12 Freq: NEEDED Status: Active Protocol: Document 06/20/21 11:38 AB (Rec: 06/20/21 15:00 AB [email or web address]) PT-Bed Mobility Assessment Supine to Sit Supine to Sit Total Assistance,2 Person Assistance,Head of Bed Elevated Sit to Supine Sit to Supine Total Assistance,2 Person Assistance Scooting Scooting to Edge of Bed Dependent Scooting Up and Down in Bed Dependent PT-Transfer Assessment Comments Mobility Comments (+) resting tremor and pt easily gets agitated. agreed to do PT and daughter encourages pt. pt completed supine to sit total A x 2 and max cues with HOB elevated. pt with increase posterior and lateral trunk lean to the R with increase rigidity and resistance with repositioning. pt tolerated ~ 5 min of sitting on EOB max A x 1-2 for sitting balance. completed sit to supine total A x 2 and max cues. postioned in bed total A x 2. call light and table placed within reach. informed pt's daughter regarding mobility and assistance needed and limitations to progressing pt due to sacral decubitus ulcer and PD. daughter understood. PT-Balance Assessment Sitting Balance and Reactions Static Sitting Balance Ability Poor Dynamic Sitting Balance Ability Poor M5 PT-IP Objective Assessments Start: 06/20/21 14:12 Freq: NEEDED Status: Active Protocol: Document 06/20/21 11:38 AB (Rec: 06/20/21 15:00 AB [email or web address]) Orientation Orientation/Cognition Level of Alertness Alert Orientation Name Safety Awareness Decreased Safety Awareness Memory Description Short Term Impaired Gross Range of Motion Lower Extremity ROM Assessment Bilaterally Impaired Impairments B ankel limited DF BLE rigidity/tightness with PROM with c/o pain Strength Lower Extremity Strength Assessment Bilaterally Impaired Hip 2-/5 Knee 2-/5 Ankle 1+/5 Comments Strength Comments unable to accurately complete MMT due to pt's rigidity Muscle Tone Muscle Tone WNL No Muscle Tone Location Bilateral Lower Extremity Type of Tone Hypertonicity,Rigidity Severity of Tone Moderate Manifistation of Tone Resting Tremors M6 PT-IP Treatment Start: 06/20/21 14:12 Freq: NEEDED Status: Active Protocol: Document 06/20/21 11:38 AB (Rec: 06/20/21 15:00 AB [email or web address]) Physical Therapy Treatment Education Education Provided Safety M7 PT-IP Assessment and Plan Start: 06/20/21 14:12 Freq: NEEDED Status: Active Protocol: Document 06/20/21 11:38 AB (Rec: 06/20/21 15:00 AB [email or web address]) PT Summary Assessment and Plan Potential Rehabilitation Potential Fair Status of Condition at Evaluation Evolving Summary Impairments Pain,ROM,Strength,Balance, Coordination,Sensation,Tone, Cognition,Bed Mobility, Transfers,Gait,Activity Tolerance Assessment Summary pt requiring total A x 2 and max cues and can easily get agitated. Daughter in room and encourages pt. Pt currently has Stage 4 sacral decubitus ulcer and PD. pt has been w/c bound for 2 months that progressed to being bed bound for the last month due to sacral decubitus ulcer. Pt plans to have I&D on sacral wound later today which will further limit mobility and sitting activity duration needed to improve trunk control and functional independence. In anticipation for the surgery, pt is NPO and did not have her PD medications and daughter said has been off for ~ 2 days and is also a factor with mobility assistance needed. will assess mobility further after surgery is completed and will determine change in functional mobility status when pt has PD medication to ensure safe mobilization with nursing and also prevention of further deconditioning. Pt also will eventually require LTC placement. Goals Bed Mobility Goal Moderate Assistance Transfer Goal Moderate Assistance,Front Wheeled Walker Other Goals improve sitting balance from P - to F improve bed mobility and transfer using FWW to CGA improve ambulation using FWW 25 ft mod A Days to Meet Goals 10 Frequency of Treatment Frequency Of Treatment Once a Day Treatment Plan Physical Therapy Treatment Plan Bed Mobility Training,Transfer Training,Gait Training, Therapeutic Exercise,Balance Retraining,Post Op Education, Discharge Planning,Hot or Cold Pack,Neuromuscular Re-ed, Coordination Retraining,Manual Therapy Recommendations To Nursing Amount of Assist Needed Mechanical Lift Discharge Recommendations PT Discharge Recommendations SNF Rehab Transportation Needs at Discharge Stretcher/Ambulance
--- NOTE | 2021-06-20 12:12 | CM.DANOTE ---
Addendum entered by Paradise Echavarria LPN 06/20/21 13:13: Checked in again with Estrella for clarification of advanced directive paperwork. Estrella says all she has is outlined in her parents will. She is deemed to be POA for pt if her spouse is (he is). Directives for care are also in this document. She will obtain her copy when she returns home today and bring it with her tomorrow to give to [facility] on for that day. POLST form given to her for review. She does say that she had looked into Palliative care and a nurse was going to call and tell me about it. Her father was on Hospice care for about 2 days before he and sounds like this was under [facility] and Palliative care program. DCP team to follow. April is clear that she is reviewing only. She will be on this weekend for further discussion. Original Note: Discharge Planning/Care Management DCP: assessment: case received, EMR reviewed and met with pt and her daughter Estrella Kisch: [phone]. Introduced self and role. Pt is an 81 year old male female who admitted late last night to care of hospitalist team. Consulting: [facility]: Dr. Ruiz who is taking pt to the OR today at 1630 for I&D of unstageable sacral ulcer with abscess. Information obtained primarily from Estrella as pt was receiving nursing care. Estrella does confirm that pt is able to speak for herself in terms of choices she wants for her care. She says pt has elected to be a DNR..otherwise full care. Estrella clarifies pt's current living situation: Pt and her had been living in own home with daughter Estrella overseeing caregiver assist and helping out herself as need be. As care needs escalated she helped them move into [facility] about 3 months ago. They were paying privately for the care. Pt's , who had dementia, a week ago after a fall with head injury. Estrella states that pt had been very limited in her physical abilities even before moving to the SNF but had been able to transfer and take a few steps with a walker. Mostly she was up in a w/c. She has a long history of Parkinson's and does appear today to have some deformity in hands and feet that would make functional movement very difficult. Estrella says she can feed herself with the right set up and tools but it does take a very long time [facility] was started and RN/PT/OT were working with pt. PCP: Rhonda Bowen had been managing the would care orders and relying on HH RN for 3x week dressing changes. Estrella stated that her mother was basically bedbound at the facility unless working with HH. She says the facility nurse looked at the wound on day of admission and told Estrella that her mother needed to go to a longterm for higher level of wound care. They attempted to have her accepted at [facility] but after SV engagement liaison Shayna understood the case she advised that pt would have to be seen by a physician before they would even consider her. Shayna is now reviewing pt for ? of acceptance once a full POC is in place. This would be under the [place] [employer] plan and would need snf auth from [place]. Estrella confirms pt is fully vaccinated and that the card is at [facility]. She will speak with [facility] today and request that a copy of the vax card be faxed to the CM/DCP fax: [phone]. Shayna is updated. Estrella has also confirmed that she plans to either have pt return to [facility] with an extra caregiver or look into an SNF that might have better caregiving capability. She does acknowledge that her mother is very debilitated but she says she wants to get better and start to work on her walking again. Unclear at this time is this is a reasonable goal but it is one that pt and her daughter are focused on at this time. DCP team will follow closely as POC unfolds. Advanced directive, confirm from FAMILY Start: 06/20/21 09:06 Freq: Q24H Status: Active Protocol: Document 06/20/21 09:06 FLOYD (Rec: 06/20/21 10:54 FLOYD [id number]) Advance Directive, confirm on record Time 08:20 Person contacted Estrella (Daughter) Copy received No CM Discharge Assessment Start: 06/20/21 12:08 Freq: Status: Active Protocol: Document 06/20/21 12:09 ITV (Rec: 06/20/21 12:12 ITV [id number]) Discharge Planning Assessment Advance Directives? Yes Advance Directives on File No History Provided By Patient,Family Member,Medical Record Prior Living Arrangements Assisted Living Facility Name Admitted From: [facility] with ADL's No Patient/Family Preference Long-Term Facility
--- NOTE | 2021-06-20 12:35 | CM.DPNOTE ---
[facility] on [facility] to see 3x/week for wound care. Shara Saenz CM Asst.
--- NOTE | 2021-06-20 13:01 | DIET.PN ---
Dietary Progress Note Assessment: 81y F c Parkinson's admitted for unstagable sacral decubitus referred to nutrition for malnutrition screening. Pt is recent , 3w ago. Up until 3mo ago pt and spouse lived in their home with help from caretakers and family. Caregivers prepared breakfast, hearty lunch, and cold sandwiches for dinner. Pts UBW 90.9kg most of adult life, however, had dropped down to 81.8kg over the past 1y. Pt and spouse moved into assisted living center 3mo ago. Pts Parkinsons limits her ability to self-feed and she takes extra time when eating secondary to tremor. Pt has easiest time self feeding when sitting bolt upright. Pt uses large handled weighted silverware. Pts daughter, Estrella, at bedside reports pt has primarily been consuming Ensure at care center secondary to pt reporting taste changes and aversion to meat. Pt states to daughter, I seem to be able to eat almost anything when you are with me. Pt admitted with unstagable sacral decubitus (5cm abcess) and UTI headed for I&D. 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 Interventions: 1. Recc ONS Arsen bid and Ensure Enlive bid to support malnourished state and wound healing in addition to meal trays. ONS will provide 40% kcal and 68% PRO needs. 2. Recc weighted silverware for meals from kitchen. 3. Provided pt and daughter Nutrients for Wound Healing brochure with tips for wound healing and taste aversion. Diet Order: NPO awaiting surgery, heart healthy EER:2,200 kcals (30kcal/kg per PCM), 100g PRO Monitoring/Evaluations: POs, ONS tolerance
--- NOTE | 2021-06-20 14:00 | PM.PREOP ---
Pre-operative Note COVID-19 COVID-19 status: Negative Result date/Date tested (Pos, Neg/Pending): 06/19/21 Interval Note History & Physical reviewed/Exam performed by Physician: Yes Changes to H&P: Yes H&P completed within 30 days and has changed as indicated here:: Spoke with daughter in the presence of her mother the patient. Told her what I expected to do which is debrided tissue and drained possible. I told her that there is is unlikely to heal well and that she will need long-term wound care. All questions were answered. Will try to do this that is minimal anesthesia is possible. I would rather not intubate this patient. Probably can accomplish this with the use of propofol and supplemental oxygen.
[2021-06-20] MEDS: LACTATED RINGERS 1,000 ML 100 ML IV ×2 (14:31→15:57)
--- NOTE | 2021-06-20 16:40 | SUR.OPER ---
Lateral on hospital bed, head on pillow, bottom leg bent , upper leg straight and supported with pillows. Upper arm supported by pillows.
--- NOTE | 2021-06-20 17:15 | P.OP_ITS ---
Procedure & Clinicians Procedure: [address] [address]Mvztjztko Note Patient: Yolanda Nieto MMR#: [id number]: 05/31/1954cct:[id number]/Sex: 67 / F Date of Service: 06/20/21Provider: Mayank Flores MD Operative Date/Time/Diagnoses Date of procedure: 06/20/21 Time of procedure: 17:08 Pre-op diagnosis: Stage IV decubitus pre sacrum Post-op diagnosis: same (Ulcer include skin subcutaneous fat muscle tendon and fragments of bone.) Procedure & Clinicians Procedure: Sharp debridement of skin subcutaneous fat tendon and bone. Area measured approximately 5 x 6 cm. Most of the skin and subcu fat had already self debrided. Same procedure as scheduled: Yes Indications: Necrotic decubitus ulcer with which the patient was admitted Surgeon: Mayank Flores Click Yes if Unassisted: Yes Anesthesia Type: MAC +/- Operative Notes Findings: tissue down to and including portions of the sacrum and coccyx. Closure Type: not applicable Specimen(s): none sent Prosthetic devices, grafts, tissues, transplants, or devices: None Estimated Blood Loss (mL): 15 Procedure in detail: The patient was placed in the right lateral decubitus position on her bed in her cheeks were taped apart so I could see into the depth of this deep ulcer. Was located in the presacral tissues. Much of the tissue appears to have self debrided. I removed a small amount of skin and subcu fat but most of what I removed was bent tendon and ligament in relation to the sacrum and coccyx. I also removed some small fragments of bone. All of the debridement was with scissors and forceps. All of it was sharp debridement. Once I was satisfied that all the tissue was removed I irrigated the wound. It was packed with saline gauze for now. Will re-evaluate tomorrow. Complications: none Post-operative Condition: stable Disposition: PACU Signed By:<Electronically signed by Mayank Flores MD>06/20/21 1397 Same procedure as scheduled: Yes
[2021-06-20] MEDS: CARBIDOPA-LEVODOPA 25/100 TABLET 1 EACH PO ×2 (18:06→21:14)
[2021-06-20] MEDS: SODIUM CHLORIDE 0.9% FLUSH 10 ML IV (18:22)
[2021-06-20] MEDS: SENNOSIDES 8.6 MG TABLET 17.2 MG PO (21:13)
[2021-06-20] MEDS: ATORVASTATIN 20 MG TABLET 10 MG PO (21:13)
[2021-06-20] MEDS: MIRTAZAPINE 15 MG TABLET PO (21:13)
--- NOTE | 2021-06-20 22:21 | PC.NURSE ---
Back from PACU at 1830. A&Ox3 but has some confusion. BP 90/46, 95/51. HR 98. Patient denies pain but when repositioning will moan in discomfort. Q 2 turns to side to prevent laying on dressing. Dressing on coccyx slightly saturated with serosanguineous fluid. Carlin draining giselle yellow cloudy urine. SCDs on. Patient drank one ensure this evening but did not have an appetite for more food. Call light within reach, bed low.
[2021-06-21] VITALS (14 sets, daily range): BP systolic 87–154; BP diastolic 52–90; PULSE 77–102; RESP 16–20; TEMP 36.1–36.7; O2SAT 91–97
[2021-06-21] MEDS: VANCOMYCIN TROUGH 1 REQUEST MISC (00:08)
[2021-06-21] MEDS: VANCOMYCIN 750 MG/150 ML PIGGYBACK 150 MG IV ×3 (00:08→17:19)
[2021-06-21 01:06] LABS: Vancomycin Trough 16.2 ug/mL (10-20)
[2021-06-21] MEDS: VANCOMYCIN PEAK 1 REQUEST MISC (02:00)
[2021-06-21 02:48] LABS: Vancomycin Peak 22.8 ug/mL (20-40)
[2021-06-21] MEDS: PIPERACILLIN/TAZO 3.375 GM in SODIUM CHLORIDE 0.9% 100 ML 25 ML IV ×3 (04:51→19:24)
[2021-06-21 05:34] LABS: Add Manual Diff / Slide Review NO; Basophils Absolute Auto 100 /uL (0-100); Basophils Percent Auto 1.2 % (0-2); Eosinophils Absolute Auto 500 /uL (0-450); Eosinophils Percent Auto 4.5 % (2-4); Hematocrit 29.7 % (36-46); Hemoglobin 9.6 g/dL (12.0-16.0); Lymphocytes Absolute Auto 1800 /uL (1100-4500); Mean Corpuscular HGB Conc 32.3 % (30-36); Mean Corpuscular Hemoglobin 28.5 PG (26-34); Mean Corpuscular Volume 88.3 fL (80-100); Monocytes Absolute Auto 900 /uL (0-900); Monocytes Percent Auto 8.4 % (3-14); Neutrophils Absolute Auto 7000 /uL (1500-7000); Neutrophils Percent Auto 67.9 % (50-75); Platelet Count 349 X10^3/uL (150-400); Red Blood Cell Count 3.37 X10^6/uL (4.0-5.2); Red Cell Distribution Width 16.6 % (11.6-14.8); White Blood Cell Count 10.3 X10^3/uL (4.5-11.0)
[2021-06-21 05:58] LABS: BUN Creatinine Ratio 38.5 (6-22); Blood Urea Nitrogen 15 mg/dL (7-17); Calcium 9.6 mg/dL (8.4-10.2); Carbon Dioxide 29 mmol/L (22-32); Chloride 104 mmol/L (98-107); Estimated Glomerular Filt Rate > 60.0 mL/min (>60); Glucose 103 mg/dL (80-110); HEMOLYSIS < 15 (0-50); Potassium 3.8 mmol/L (3.4-5.1); Sodium 136 mmol/L (137-145)
--- NOTE | 2021-06-21 06:16 | PC.NURSE ---
At shift beginning patient was alert and oriented. At 0400 during medical scheduler patient was agitated stating that she did not hire me or CAR WASHER, to leave her alone. Stated she was not in a hospital.
[2021-06-21] MEDS: HYDROCODONE/ACET 5/325 TABLET 1 TAB PO (08:11)
--- NOTE | 2021-06-21 10:17 | CM.DPC ---
Addendum entered by Avis Peterson R.N. 06/21/21 15:30: Neli from [facility] called and spoke to Gio in [place]. She indicated that the provider at [facility] could not cover group home for P.T, since she was bed bound at [facility]. Also, BID dressing changes are not complex enough, needs more description of wound, measurements, and if she will be discharging on IV antibiotics. Spoke to hospitalist, Dr. Hanna about this, and asked him if he can put in a note regarding complexity of wound, and need for IV antibiotics, for Dr. Stuart did not put in note. Sharda at [facility] called and asked for nursing, P.T. notes, and medication list. Went ahead and sent her the information. Addendum entered by Avis Pteerson R.N. 06/21/21 14:26: Called [facility] at [facility] at number listed below. Suture Winder Hand stated that there is no one in admissions on the weekend, and would/could not give to voice mail Nurse, Allen, received another phone number for [facility] in [place]. The number is: [phone]. Was able to leave a message with Page in admissions, but did not give details on patient. Patient is deemed medically ready, per hospitalist. So far, [facility] is reviewing, as well as [facility]. [facility] authorization is pending as well. Will go with the facility that is able to accept tomorrow, if possible. Addendum entered by Avis Peterson R.N. 06/21/21 13:52: Attempted to call [facility] at [facility], which is where daughter was inquiring about. Their phone number is: [phone]. They placed this insurance case manager on hold for a while. Will try again. Spoke to Alana in admissions at [facility]. She stated that they do have female beds available, and updated her on referral. They also take [facility]. Sent over face sheet, operative report, and H&P for her to review. Addendum entered by Avis Peterson R.N. 06/21/21 13:32: Met with patient and daughter, Estrella. She brought in advanced directive, placed to be scanned. Discussed correction care planning, and goal is for patient to go back to [facility], with increased caregiving, but wound needs to be more stable, for at this time, she is getting twice a day wet to dry dressing changes. Shayna at [facility] mentioned, she is still unclear if she can accept patient, due to wound needs, but will continue to review. Daughter is also looking into [facility] in [place], but would will need to be more stable. Encouraged daughter to pick a second facility, should [facility] not accept. She stated, she heard good things about [facility]. She is also wondering about a place in [place], [facility], her sister works there. Daughter is hopeful for patient going back to [facility] after wound is more stable. Neli at [facility] was requesting wound information, such as frequency of dressing changes. Faxed over nursing wound care notes, dressing is currently wet to dry BID, and awaiting updated surgeon note from today. Went ahead and faxed this over to Neli at [facility]. Original Note: DCP Cont: Discussed patient during team rounds. Patient medically close to being ready for discharge, has not yet been cleared by surgery. Went ahead and faxed over yesterday's P.T. note to [facility], as well as operative report. P.T. will be working with patient today, as well as O.T. P: DCP to continue to work on discharge placement. Patient came from [facility], and was getting [facility] three times a week. According to notes, Estrella lam, is bringing in advanced directive paper work, and is also looking into increased caregivers at [facility], versus another facility. Avis Peterson, RN/[employer]el Padder
[2021-06-21] MEDS: SODIUM CHLORIDE 0.9% FLUSH 10 ML IV ×2 (11:21→21:22)
[2021-06-21] MEDS: LOSARTAN 50 MG TABLET 100 MG PO (11:21)
[2021-06-21] MEDS: CARBIDOPA-LEVODOPA 25/100 TABLET 1 EACH PO ×4 (11:21→21:20)
[2021-06-21] MEDS: ENOXAPARIN 40 MG/0.4 ML SYRINGE SUBCUT (11:26)
--- NOTE | 2021-06-21 15:05 | OT.IP.EVAL ---
Current Diagnoses Pressure ulcer of sacral region, stage 4 (06/19/21) Surgery Performed Operation Date: 06/20/21 16:15 Actual Procedures p I&D sacral ulcer - Mayank Flores MD Past Medical History (Last Reviewed 06/20/21 @ 06:59 by Timoteo Ruiz MD) History of tonsillectomy Hyperlipidemia Hypertension Parkinson's disease dementia Surgical History (Last Reviewed 06/20/21 @ 06:59 by Timoteo Ruiz MD) History of tonsillectomy Occupational Therapy Inpatient Evaluation/Re-Eval M1 PT/OT-IP Prior Functional Status Start: 06/20/21 14:12 Freq: NEEDED Status: Active Protocol: Document 06/21/21 14:16 [facility] (Rec: 06/21/21 18:22 [facility] [id number]) Medical Review Prior Functional Status Medical History Reviewed Yes Communication able to answer questions but unable to provide accurate/ detailed info Mobility and Gait pt's daughter in room with pt and answered questions regarding home set up and PLOF Daughter stated that pt moved to [facility] ~ 3 month ago and prior to that was at home and able to ambulate using 4WW SBA. stated that after ~ [address] [facility], pt's BLE started to not work per daughter and was needing 2 person assist with mobility and unable to ambulate. stated that staff was still able to transfer her on a w/c and pt usually stays on her w/ c until last month where in pt has been basically bed bound and only gets up when she has to take her somewhere due to her scaral decubitus ulcer. stated that [facility] staff transfer her with 2 person pivot transfer because they are not allowed to use a mechanical lift for transfers. stated that pt has been receiving homehealth OT. pt has not been ambulatory for ~ 3 month and was bed bound for ~ 1 month Activities of Daily Living and IADL's Pt states has had home health and trying to work on eating and grooming need to do more independently for herself. Social History Household Members other Living Arrangements Assisted Living M2 OT-IP Current Condition Start: 06/21/21 17:54 Freq: Status: Active Protocol: Document 06/21/21 14:16 [facility] (Rec: 06/21/21 18:22 [facility] [id number]) Occupational Therapy Current Condition Current Condition Evaluation Date 06/21/21 Treatment Diagnosis Stage 4 sacral decubitus ulcer , decreased mobiltity Diagnosis Onset Date 06/19/21 Post Operative Precautions Other Precautions Per Dr. Flores to keep pt off sacrum and q2hr position change. Per Dr. Jacques cabral to get pt up. M3 OT- IP Subjective and Pain Start: 06/21/21 17:54 Freq: Status: Active Protocol: Document 06/21/21 14:16 [facility] (Rec: 06/21/21 18:22 [facility] [id number]) OT- Subjective Occupational Therapy Visit Type Type Initial Evaluation Visit Start Time 14:16 Visit Stop Time 15:05 Total Visit Minutes 49 Occupational Therapy Visit Comments Patient Comments Pt wanting to get up. Pt's daughter in the room. Patient/Caregiver Goals To be able to walk again. OT Pain Assessment Pain When Pain Assessed At Rest Pain Present Pain Present Denied Pain M4 OT- IP ADL's Start: 06/21/21 17:54 Freq: Status: Active Protocol: Document 06/21/21 14:16 [facility] (Rec: 06/21/21 18:22 [facility] [id number]) OT [id number] Comments OT Self-Feeding Comments Per nursing pt need 1:1 feeding due to tremors. OT ADL-Grooming General Evaluation Grooming Ability Maximum Assistance Comments OT Grooming Comments Pt able to wash her face after set-up and needing assist to brush her hair and unable to reach up fully to be able to brush her hair. OT ADL-Oral Care Comments Oral Care Comments Not perfored. OT ADL-Dressing General Eval Lower Body Dressing Ability Total Assistance Areas Needing Assistance Socks OT ADL-Toileting General Evaluation Toileting Ability Total Assistance Areas Needing Assistance Manage Clothing,Perform Perineal Hygiene OT ADL-Bathing Bathing Type Bathing Type Sponge Bath General Evaluation Bathing Ability Maximal Assistance Comments OT Bathing Comments Sponge bath more appropriate at this time. Pt able to assist to wash her hands and chest at this time. M5 OT- IP IADL's Start: 06/21/21 17:54 Freq: Status: Active Protocol: Document 06/21/21 14:16 [facility] (Rec: 06/21/21 18:22 [facility] [id number]) OT-Instrumental Activities of Daily Living Home Safety Awareness Home Safety Comments Pt has decreased insight to her needs. Pt is very anxious of falling. Medication Management Medication Management Caregiver Administers Money Management Money Management Caregiver Provides Assistance Meal Preparation Meal Preparation Caregiver Provides Assist Fire Alarm Installer Fire Alarm Installer Caregiver Provides Assist Driving Driving Caregiver Provides Assist M6 OT- IP Functional Cognition Start: 06/21/21 17:54 Freq: Status: Active Protocol: Document 06/21/21 14:16 [facility] (Rec: 06/21/21 18:22 [facility] [id number]) Cognitive Factors Limiting Selfcare Function Cognitive Ability Level of Alertness Alert,Confusional State Patient Orientation Name Attention Span Ability Capable of Focused Attention, Capable of Sustained Attention Ability to Follow Commands Able to Follow One Step Commands with Increased Time, Able to Follow One Step Commands with Repetition Memory Description Short Term Impaired Safety Awareness Underestimates Need for Assistance Cognitive Comments Cognitive Assessment Comments Pt is very fearful of falling and has decreased awareness of midline. Pt able to follow simple concrete commands for functional Adl's. M7 OT- IP Mobility and Balance Start: 06/21/21 17:54 Freq: Status: Active Protocol: Document 06/21/21 14:16 [facility] (Rec: 06/21/21 18:22 [facility] [id number]) OT- Bed Mobility Assessment Rolling Type of Rolling Roll to Left Level of Assistance Maximum Assistance,2 Person Assistance,Bedrails Supine to Sit Supine to Sit Assist Total Assistance,2 Person Assistance Sit to Supine Sit to Supine Assist Total Assistance,2 Person Assistance Scooting Scooting to Edge of Bed Maximum Assistance,1 Person Assistance OT-Transfer Assessment Comments Mobility Comments Pt MAX AX 2 to help roll to the left and total assist to get upright. OT- Balance Assessment Sitting Balance and Reactions Static Sitting Balance Ability Poor Dynamic Sitting Balance Ability Poor Comments Other Balance Tests/Deviations/Treatment MAX X 1 for sitting balance. : Pt able to reach forwards for grooming needs but still needing MAX A for balance. M8 OT- IP Objective Assessments Start: 06/21/21 17:54 Freq: Status: Active Protocol: Document 06/21/21 14:16 [facility] (Rec: 06/21/21 18:22 [facility] [id number]) OT Gross Range of Motion Upper Extremity Range of Motion Assessment Within Functional Limits OT Strength Upper Extremity Strength Assessment Within Functional Limits OT-Muscle Tone Assessment Muscle Tone WNL No M9 OT- IP Assessment and Plan Start: 06/21/21 17:54 Freq: Status: Active Protocol: Document 06/21/21 14:16 [facility] (Rec: 06/21/21 18:22 [facility] [id number]) OT Summary Assessment and Plan Potential Rehabilitation Potential Fair Analytic Complexity at Evaluation High Summary OT Impairments Pain,Range of Motion,Strength, Balance,Coordination,Tone, Functional Cognition, Functional Mobility,Self- Feeding,Grooming,Dressing, Toileting,Bathing,Activity Tolerance Progress Towards Goals Slow Progress due to Pain,Slow Progress due to Medical Issues,Slow Progress due to Activity Tolerance,Slow Progress due to Cognition Assessment Summary Pt high complexity and main barriers are sacral decubitus in which pt is to keep off her sacrum, pt now dependent for bed mobility needs at this time. Pt is motivated to be able to walk again, however has not walk since past February. Pt would benefit from skilled rehab to work on core strength, midline and to maximize her independence for any ADl needs. Suggest skilled rehab prior to going home. Goals Self-Feeding Goal Moderate Assistance Grooming Goal Minimal Assistance Bathing Goal Moderate Assistance Days to Meet Goals 30 Frequency of Treatment Frequency Of Treatment Once a Day Treatment Plan OT Treatment Plan ADL Training,Functional Cognition Training,Functional Mobility,Patient/Family Education,Discharge Planning Other Treatment Recommendations and Next Work on pt's midline control Treatment Focus while seated and doing ADl needs while seated at edge of the bed with MODA X 1. Discharge Recommendations OT Discharge Recommendations SNF Rehab Transportation Needs at Discharge Wheelchair/Cabulance,Stretcher /Ambulance
--- NOTE | 2021-06-21 15:07 | PT.IPTN ---
Current Diagnoses Pressure ulcer of sacral region, stage 4 (06/19/21) Surgery Performed Operation Date: 06/20/21 16:15 Actual Procedures p I&D sacral ulcer - Maaynk Flores MD Physical Therapy Treatment Note M2 PT-IP Current Condition Start: 06/20/21 14:12 Freq: NEEDED Status: Active Protocol: Document 06/20/21 11:38 AB (Rec: 06/20/21 15:00 AB [id number]) Physical Therapy Current Condition Current Condition Evaluation Date 06/20/21 Treatment Diagnosis Stage 4 sacral decubitus ulcer ; PD; generalized weakness Onset Date 06/19/21 Precautions Other Precautions Stage 4 sacral ulcer M3 PT-IP Subjective Start: 06/20/21 14:12 Freq: NEEDED Status: Active Protocol: Document 06/21/21 14:19 CLB (Rec: 06/21/21 16:31 CLB [id number]) Subjective Physical Therapy Visit Type Type Treatment Note Visit Start Time 14:19 Visit Stop Time 15:07 Total Visit Minutes 48 Notes daughter present during tx. Number of PHOTO TECHNICIAN Visits 1 Physical Therapy Visit Comments Patient Comments Pt agreeable to trial sitting on EOB Therapy Pain Assessment Pain When Pain Assessed At Rest Pain Present Pain Present Pain Reported M4 PT-IP Mobility and Gait Start: 06/20/21 14:12 Freq: NEEDED Status: Active Protocol: Document 06/21/21 14:19 CLB (Rec: 06/21/21 16:31 CLB [id number]) PT-Bed Mobility Assessment Rolling Type of Rolling Roll to Left Level of Assist Maximal Assistance,2 Person Assistance Supine to Sit Supine to Sit Total Assistance,2 Person Assistance,Head of Bed Elevated,Bedrails Sit to Supine Sit to Supine Total Assistance,2 Person Assistance Scooting Scooting to Edge of Bed Dependent Scooting Up and Down in Bed Dependent PT-Transfer Assessment Comments Mobility Comments Pt required Max A x2 for LR to left and total assist to sit up, pt c/o pain and fear of falling, pt returned to sidelying, after encouraging pt to decrease fear pt agreed to try sitting up on EOB, Pt required total assist x2 and total assist to scoot towards EOB. OT used bolster under pts feet to keep pt at safe distance from EOB. Pt required Max A x1 for sitting balance while OT assisted pt with changing gown, washing and combing hair. Pt was able to comb hair and use wash cloth to wash chest and armpits. Pt sat ~15 minutes while performing ADL's and then pt requried total assist to return to supine. Pt was rolled to right side per RN request with pillow behind and on between pt's LE's. Pt was left in bed with call light and all needs within reach, daughter present. PT-Balance Assessment Sitting Balance and Reactions Static Sitting Balance Ability Poor Dynamic Sitting Balance Ability Poor M5 PT-IP Objective Assessments Start: 06/20/21 14:12 Freq: NEEDED Status: Active Protocol: Document 06/20/21 11:38 AB (Rec: 06/20/21 15:00 AB [id number]) Orientation Orientation/Cognition Level of Alertness Alert Orientation Name Safety Awareness Decreased Safety Awareness Memory Description Short Term Impaired Gross Range of Motion Lower Extremity ROM Assessment Bilaterally Impaired Impairments B ankel limited DF BLE rigidity/tightness with PROM with c/o pain Strength Lower Extremity Strength Assessment Bilaterally Impaired Hip 2-/5 Knee 2-/5 Ankle 1+/5 Comments Strength Comments unable to accurately complete MMT due to pt's rigidity Muscle Tone Muscle Tone WNL No Muscle Tone Location Bilateral Lower Extremity Type of Tone Hypertonicity,Rigidity Severity of Tone Moderate Manifistation of Tone Resting Tremors M6 PT-IP Treatment Start: 06/20/21 14:12 Freq: NEEDED Status: Active Protocol: Document 06/20/21 11:38 AB (Rec: 06/20/21 15:00 AB [email or web address]) Physical Therapy Treatment Education Education Provided Safety M7 PT-IP Assessment and Plan Start: 06/20/21 14:12 Freq: NEEDED Status: Active Protocol: Document 06/21/21 14:19 CLB (Rec: 06/21/21 16:31 CLB [id number]) PT Summary Assessment and Plan Potential Rehabilitation Potential Fair Status of Condition at Evaluation Evolving Summary Impairments Pain,ROM,Strength,Balance, Coordination,Sensation,Tone, Cognition,Bed Mobility, Transfers,Gait,Activity Tolerance Assessment Summary Pt requiring total assist x2 for all mobility. Pt with fear of falling gets agitated easily. Pt able to sit on EOB ~15 minutes with no c/o pain in sitting. Pt required Max A for sitting balance with PT behind pt with pillow and hands on shoulders. OT use mirror in drawer of bedside table so pt could visually see position. Pt will require SNF rehab to increase strength and activity tolerance to improve mobility. Goals Bed Mobility Goal Moderate Assistance Transfer Goal Moderate Assistance,Front Wheeled Walker Other Goals improve sitting balance from P - to F improve bed mobility and transfer using FWW to CGA improve ambulation using FWW 25 ft mod A Days to Meet Goals 10 Frequency of Treatment Frequency Of Treatment Once a Day Treatment Plan Physical Therapy Treatment Plan Bed Mobility Training,Transfer Training,Gait Training, Therapeutic Exercise,Balance Retraining,Post Op Education, Discharge Planning,Hot or Cold Pack,Neuromuscular Re-ed, Coordination Retraining,Manual Therapy Other Recommendations and Next Treatment sitting balance, bed mobility Focus Recommendations To Nursing Amount of Assist Needed Mechanical Lift Discharge Recommendations PT Discharge Recommendations SNF Rehab Transportation Needs at Discharge Stretcher/Ambulance
--- NOTE | 2021-06-21 15:15 | PC.NURSE ---
1330 Dressing changed to sacral ulcer per order, cleaned with saline, and packed with wet to dry gauze and covered with allevyn. Patient tolerated well.
[2021-06-21] MEDS: SODIUM CHLORIDE 0.9% 1,000 ML 1000 ML IV ×2 (15:45→17:25)
--- NOTE | 2021-06-21 16:12 | PM.PN.1 ---
Subjective Subjective Date Patient Seen: 06/21/21 Time Patient Seen: 08:00 Interval history: Today she states she has some buttock pain. Otherwise she has no complaints. This afternoon she did drop her blood pressure to the 80s. She denies any symptoms. She has no significant bleeding from the wound. She has no fevers/chills. She is currently on vanco/zosyn. Exam Vital Signs (past 8 hours): - 06/21/21 08:42 06/21/21 08:43 06/21/21 09:00 Temperature 97.8 F Pulse Rate 77 77 96 H Respiratory Rate 16 20 Blood Pressure 154/71 H Pulse Oximetry 96 97 97 06/21/21 11:00 06/21/21 11:21 06/21/21 15:15 Temperature 97.5 F L 96.9 F L Pulse Rate 89 96 H 102 H Respiratory Rate 20 19 Blood Pressure 118/67 154/71 H 87/52 L Pulse Oximetry 95 Oxygen Delivery Method Room Air Oxygen Flow Rate 0 Narrative Exam Narrative: GENERAL-elderly, frail woman, no acute distress CVS- regular rate, no peripheral edema RESP-unlabored respiratory effort, no audible wheezing GI-soft, nontender nondistended SKIN-unstagable ducubuitus ulcer no s/p debridement, area of approximately 5x6 cm with visible fat, tendon, and bone NEURO-alert disoriented Objective Labs Result Diagrams: 06/21/21 05:05 06/21/21 05:05 Labs: Laboratory Results - last 24 hr 06/20/21 06/21/21 06/21/21 23:35 02:10 05:05 WBC 10.3 RBC 3.37 L Hgb 9.6 L Hct 29.7 L MCV 88.3 MCH 28.5 MCHC 32.3 RDW 16.6 H Plt Count 349 Neut % (Auto) 67.9 Lymph % (Auto) 18.0 L [place] % (Auto) 8.4 Eos % (Auto) 4.5 H Baso % (Auto) 1.2 Neut # (Auto) 7000 Lymph # (Auto) 1800 [place] # (Auto) 900 Eos # (Auto) 500 H Baso # (Auto) 100 Sodium Potassium Chloride Carbon Dioxide BUN Creatinine Estimated GFR BUN/Creatinine Ratio Glucose Calcium Vancomycin Peak 22.8 Vancomycin Trough 16.2 06/21/21 05:05 WBC RBC Hgb Hct MCV MCH MCHC RDW Plt Count Neut % (Auto) Lymph % (Auto) [place] % (Auto) Eos % (Auto) Baso % (Auto) Neut # (Auto) Lymph # (Auto) [place] # (Auto) Eos # (Auto) Baso # (Auto) Sodium 136 L Potassium 3.8 Chloride 104 Carbon Dioxide 29 BUN 15 Creatinine 0.39 L Estimated GFR > 60.0 BUN/Creatinine Ratio 38.5 H Glucose 103 Calcium 9.6 Vancomycin Peak Vancomycin Trough [facility] Medical History Hyperlipidemia Hypertension Parkinson's disease dementia Surgical History History of tonsillectomy Family History Other Unknown family medical history Social History household members: other Smoking Status: Never smoker alcohol intake: never Assessment & Plan Assessment & Plan narrative: Ms. Dunne is an 81W with H parkinsons coming in with infected sacral decubitus ulcer down to bone. 1. Sacral decubitus ulcer stage IV, with osteomyelitis -WBC 11.9 with a left shift neutrophils 9000, HGB 11.3, HCT 34. -cultures pending -patient had a dose of Zosyn and vancomycin in the ED, ordered vancomycin per pharmacy -ordered for broad spectrum antibiotics -s/p debridement on 06/20 -appreciate surgical recs, they do not think flap would do well in this area, she will need to remain off her sacrum, with frequent q2 hour position changes 2. Parkinson's dementia, acute on chronic, present on admission -continue patient's carbidopa-levodopa and Remeron 3. Essential hypertension, chronic, present on admission -hold patient's losartan 4. Hyperlipidemia, chronic, present on admission -continue patient's simvastatin 5. Hypotension -occurred afternoon of 06/21 -ordered for IV fluids -reorder urinalysis and culture as last one was contaminated -follow up blood cultures -stop losartan as above -check cbc to make sure no acute drop in blood count Code status: DNR Surrogate decision maker: Estrella Hernandez daughter-DPOA COVID PCR: Negative COVID vaccination: Unknown
[2021-06-21 16:23] LABS: Hemoglobin 9.9 g/dL (12.0-16.0)
[2021-06-21 17:23] LABS: Lactate (Lactic Acid) 1.7 mmol/L (0.7-2.1)
[2021-06-21] MEDS: ATORVASTATIN 20 MG TABLET 10 MG PO (21:20)
[2021-06-21] MEDS: SENNOSIDES 8.6 MG TABLET 17.2 MG PO (21:21)
[2021-06-21] MEDS: MIRTAZAPINE 15 MG TABLET PO (21:21)
[2021-06-22] VITALS (9 sets, daily range): BP systolic 113–128; BP diastolic 50–74; PULSE 81–117; RESP 16–19; TEMP 36.3–36.7; O2SAT 90–93
[2021-06-22 00:47] LABS: Appearance Urine UA CLOUDY; Bilirubin Urine UA NEGATIVE (NEGATIVE); Color Urine UA YELLOW; Glucose Urine UA NEGATIVE (Negative); Ketones Urine UA 1+ (NEGATIVE); Leukocyte Esterase Urine UA 2+ (NEGATIVE); Nitrite Urine UA NEGATIVE (Negative); Occult Blood Urine UA 2+ (Negative); Protein Urine UA 2+ (Negative); Specific Gravity Urine UA 1.015 (1.000-1.035); Urobilinogen Urine UA 0.2 E.U./dL (0.2)
[2021-06-22 00:48] LABS: pH Urine UA 5.5 (4.5-8.0)
[2021-06-22] MEDS: VANCOMYCIN 750 MG/150 ML PIGGYBACK 150 MG IV ×3 (01:04→16:17)
[2021-06-22 01:39] LABS: RBC Urine 5-10/HPF (0-5/HPF); WBC Urine >100/HPF (0-5/HPF)
[2021-06-22 01:40] LABS: Bacteria Urine Many (>30); Calcium Oxalate Crystals Urine Moderate
[2021-06-22 01:43] LABS: Culture Indicated Urine Specimen Cultured
[2021-06-22] MEDS: LACTATED RINGERS 1,000 ML 100 ML IV (02:20)
--- NOTE | 2021-06-22 02:32 | PC.NURSE ---
Refused to get her dressing change. States leave me alone, will monitor & approach her again later.
[2021-06-22] MEDS: PIPERACILLIN/TAZO 3.375 GM in SODIUM CHLORIDE 0.9% 100 ML 25 ML IV ×3 (04:01→20:21)
[2021-06-22] MEDS: HYDROCODONE/ACET 5/325 TABLET 1 TAB PO (04:33)
--- NOTE | 2021-06-22 04:54 | PC.NURSE ---
Medicated with 1 tab. of Vicodin after dressing was changed to her sacrum @ [id number].
[2021-06-22 08:02] LABS: Add Manual Diff / Slide Review NO; Basophils Absolute Auto 100 /uL (0-100); Eosinophils Absolute Auto 600 /uL (0-450); Eosinophils Percent Auto 8.3 % (2-4); Hematocrit 27.5 % (36-46); Hemoglobin 8.8 g/dL (12.0-16.0); Lymphocytes Absolute Auto 1300 /uL (1100-4500); Lymphocytes Percent Auto 17.1 % (25-40); Mean Corpuscular HGB Conc 32.2 % (30-36); Mean Corpuscular Hemoglobin 28.5 PG (26-34); Mean Corpuscular Volume 88.6 fL (80-100); Monocytes Absolute Auto 600 /uL (0-900); Monocytes Percent Auto 7.4 % (3-14); Neutrophils Absolute Auto 5200 /uL (1500-7000); Neutrophils Percent Auto 66.2 % (50-75); Platelet Count 348 X10^3/uL (150-400); White Blood Cell Count 7.9 X10^3/uL (4.5-11.0)
--- NOTE | 2021-06-22 08:06 | CM.DPC ---
Addendum entered by Avis Peterson R.N. 06/22/21 12:39: Spoke to Neli at [facility], and updated her on wound, as well as IV medications for Osteomyelitis. She indicated that patient most likely will be authorized is the wound is being packed, since that is a skilled need, as well as her going on IV antibiotics. Let her know that this case manage will fax her over updated information, for their fax is currently working now. Also, let her know that this counter caser is continuing to work on placement, between [facility] and [facility]. Shayna at [facility] indicated that she will need to discuss this patient with team, due to needs and complexity of wound. Addendum entered by Avis Peterson R.N. 06/22/21 11:47: Alana from [facility] called back and left a message that they can't accept patient, due to nature of the wound. Spoke to Kalani at [facility], and she indicated that they are not in [facility] network, and if they attempted to get a contract, would not pay as much. Spoke to Ashlee at [facility], and she mentioned that they are contracted with [facility], and willing to take a look at patient. Will fax over information. Addendum entered by Avis Peterson R.N. 06/22/21 10:38: Discussed patient during team rounds regarding patient needing IV antibiotics upon discharge. Hospitalist stated that patient has osteomyelitis, and will need art history professor IV antibiotics. She does not yet have a PICC line. Have already faxed update note to [facility]. Noted that faxes are not yet going through, will need to resend today. Original Note: DCP Cont: Neli from [facility] had spoken to Gio in [place] indicating that patient would not be covered for chcf with P.T, since she was immobile prior to hospitalization. She indicated that twice a day dressing changes would not be covered with wet to dry, and would need more extensive wound information, or if patient would need outpatient IV. Updated Dr. Hanna on this matter yesterday, and requested an extensive progress note discussing any needs for IV ABO, or any other descriptions of the wound. Went ahead and faxed [facility] updated progress note this am. Other option will have to be patient returning to [facility] if she can be on oral antibiotics, at this time, would is cultured and this is pending. P: DCP to continue to work on authorization. [facility] is reviewing, as well as [facility]. May call [facility] today as well. Avis Peterson RN/Mattress Renovator
[2021-06-22] MEDS: SODIUM CHLORIDE 0.9% FLUSH 10 ML IV ×2 (08:33→20:23)
[2021-06-22] MEDS: CARBIDOPA-LEVODOPA 25/100 TABLET 1 EACH PO ×4 (08:33→20:22)
[2021-06-22] MEDS: ENOXAPARIN 40 MG/0.4 ML SYRINGE SUBCUT (08:33)
--- NOTE | 2021-06-22 13:08 | PT.IPTN ---
Current Diagnoses Pressure ulcer of sacral region, stage 4 (06/19/21) Surgery Performed Operation Date: 06/20/21 16:15 Actual Procedures p I&D sacral ulcer - Mayank Flores MD Physical Therapy Treatment Note M2 PT-IP Current Condition Start: 06/20/21 14:12 Freq: NEEDED Status: Active Protocol: Document 06/20/21 11:38 AB (Rec: 06/20/21 15:00 AB [id number]) Physical Therapy Current Condition Current Condition Evaluation Date 06/20/21 Treatment Diagnosis Stage 4 sacral decubitus ulcer ; PD; generalized weakness Onset Date 06/19/21 Precautions Other Precautions Stage 4 sacral ulcer M3 PT-IP Subjective Start: 06/20/21 14:12 Freq: NEEDED Status: Active Protocol: Document 06/22/21 12:58 LJ (Rec: 06/22/21 13:08 LJ [id number]) Subjective Physical Therapy Visit Type Type Treatment Note Visit Start Time 12:15 Visit Stop Time 12:55 Total Visit Minutes 35 Number of EXAMINATION GRADER Visits 2 Physical Therapy Visit Comments Patient Comments Pt agreeable to trial sitting on EOB M4 PT-IP Mobility and Gait Start: 06/20/21 14:12 Freq: NEEDED Status: Active Protocol: Document 06/22/21 12:58 WARREN (Rec: 06/22/21 13:08 LJ [id number]) PT-Bed Mobility Assessment Rolling Type of Rolling Bilateral Level of Assist Maximal Assistance,2 Person Assistance Supine to Sit Supine to Sit Total Assistance,2 Person Assistance,Head of Bed Elevated,Bedrails Sit to Supine Sit to Supine Total Assistance,2 Person Assistance Scooting Scooting to Edge of Bed Dependent Scooting Up and Down in Bed Dependent PT-Transfer Assessment Comments Mobility Comments Pt requiring MaxA x2 for B rolling and total assist for positioning. MaxA x2 for supine>sit on EOB. MaxA x2 to scoot to EOB. Once sitting on EOB, pt able to maintain upright posture for 1 minute with CGA and many cues. Repeated sitting exercise with only CGA 3 times with rest breaks of 1 minute in between. Pt required MaxA x2 to return to supine position with pillows placed to float her buttocks and pillow between her LEs. She was left with nursing in room. PT-Balance Assessment Sitting Balance and Reactions Static Sitting Balance Ability Poor Dynamic Sitting Balance Ability Poor M5 PT-IP Objective Assessments Start: 06/20/21 14:12 Freq: NEEDED Status: Active Protocol: Document 06/20/21 11:38 AB (Rec: 06/20/21 15:00 AB [id number]) Orientation Orientation/Cognition Level of Alertness Alert Orientation Name Safety Awareness Decreased Safety Awareness Memory Description Short Term Impaired Gross Range of Motion Lower Extremity ROM Assessment Bilaterally Impaired Impairments B ankel limited DF BLE rigidity/tightness with PROM with c/o pain Strength Lower Extremity Strength Assessment Bilaterally Impaired Hip 2-/5 Knee 2-/5 Ankle 1+/5 Comments Strength Comments unable to accurately complete MMT due to pt's rigidity Muscle Tone Muscle Tone WNL No Muscle Tone Location Bilateral Lower Extremity Type of Tone Hypertonicity,Rigidity Severity of Tone Moderate Manifistation of Tone Resting Tremors M6 PT-IP Treatment Start: 06/20/21 14:12 Freq: NEEDED Status: Active Protocol: Document 06/22/21 12:58 LJ (Rec: 06/22/21 13:08 LJ [id number]) Physical Therapy Treatment Education Education Provided Safety M7 PT-IP Assessment and Plan Start: 06/20/21 14:12 Freq: NEEDED Status: Active Protocol: Document 06/22/21 12:58 LJ (Rec: 06/22/21 13:08 LJ [id number]) PT Summary Assessment and Plan Potential Rehabilitation Potential Fair Status of Condition at Evaluation Evolving Summary Impairments Pain,ROM,Strength,Balance, Coordination,Sensation,Tone, Cognition,Bed Mobility, Transfers,Gait,Activity Tolerance Assessment Summary Pt requiring MaxA x2 for all bed mobility and dependent for positioning. Pt able to mainaian seated position on EOB for 1 minute at a time x3 with CGAx1. Pt will need SNF for improving functional mobility and strength. Goals Bed Mobility Goal Moderate Assistance Transfer Goal Moderate Assistance,Front Wheeled Walker Other Goals improve sitting balance from P - to F improve bed mobility and transfer using FWW to CGA improve ambulation using FWW 25 ft mod A Days to Meet Goals 10 Frequency of Treatment Frequency Of Treatment Once a Day Treatment Plan Physical Therapy Treatment Plan Bed Mobility Training,Transfer Training,Gait Training, Therapeutic Exercise,Balance Retraining,Post Op Education, Discharge Planning,Hot or Cold Pack,Neuromuscular Re-ed, Coordination Retraining,Manual Therapy Other Recommendations and Next Treatment sitting balance, bed mobility Focus Recommendations To Nursing Amount of Assist Needed Mechanical Lift Discharge Recommendations PT Discharge Recommendations SNF Rehab Transportation Needs at Discharge Stretcher/Ambulance
--- NOTE | 2021-06-22 14:12 | CM.DPC ---
Addendum entered by Avis Peterson R.N. 06/22/21 15:00: Completed PASSR, received notes from nursing indicating wound treatment and orders. Faxing to [facility]. If this does not go through, will need to try again in the am. Original Note: DCP Cont: Patient is getting PICC line today. Daughter, Estrella, has been at bedside. Discussed discharge, and mentioned that [facility] is reviewing, may possibly accept. They were just inquiring upon vaccination, which daughter indicated that she has had both, but [facility] has the records. Estrella is also adamant, along with other family members, of wanting patient to go to [facility] in [place]. Their phone number is: [phone]. Mentioned [facility], and daughter indicated, she has a cousin that works there, and knows that they are approved for [facility]. Will have to follow up with [facility]. Let daughter know that patient most likely will be ready for discharge tomorrow, and this case management social worker needs to continue to work on discharge, [facility] may accept. Daughter feels strongly, that they may be able to accept tomorrow. Asked daughter about transportation, for she most likely will need BLS transport secondary to wounds, and she indicated, they may be able to make this happen. P: DCP to continue to follow. Patient most likely will be ready for discharge tomorrow. Still have not yet received [facility] auth, will fax updated documents to them. Will also need to follow up with [facility] tomorrow, as well as [facility], for there is no one available in admissions today. Avis Peterson RN/Pharmaceutical Plant Operator
--- NOTE | 2021-06-22 14:15 | P.PN_ITS ---
Subjective Subjective Date Patient Seen: 06/22/21 Time Patient Seen: 08:00 Interval history: Today she feels well with no complaints. Denies any pain. Exam Vital Signs (past 8 hours): - 06/22/21 08:00 06/22/21 13:08 Temperature 98 F 97.9 F Pulse Rate 81 83 Respiratory Rate 16 16 Blood Pressure 118/74 120/69 Pulse Oximetry 92 91 Oxygen Delivery Method Room Air Oxygen Flow Rate 0 Narrative Exam Narrative: GENERAL-elderly, frail woman, no acute distress CVS- regular rate, no peripheral edema RESP-unlabored respiratory effort, no audible wheezing GI-soft, nontender nondistended SKIN-unstagable ducubuitus ulcer no s/p debridement, area of approximately 5x6 cm with visible fat, tendon, and bone NEURO-alert disoriented Objective Labs Result Diagrams: 06/22/21 07:45 06/21/21 05:05 Labs: Laboratory Results - last 24 hr 06/21/21 06/21/21 06/21/21 16:15 16:58 18:10 WBC RBC Hgb 9.9 L Hct MCV MCH MCHC RDW Plt Count Neut % (Auto) Lymph % (Auto) [place] % (Auto) Eos % (Auto) Baso % (Auto) Neut # (Auto) Lymph # (Auto) [place] # (Auto) Eos # (Auto) Baso # (Auto) Lactate 1.7 Urine Color Yellow Urine Appearance Cloudy Urine pH 5.5 Ur Specific [place] 1.015 Urine Protein 2+ H Urine Glucose (UA) Negative Urine Ketones 1+ H Urine Occult Blood 2+ H Urine Nitrate Negative Urine Bilirubin Negative Urine Urobilinogen 0.2 Ur Leukocyte Esterase 2+ H Urine RBC 5-10/hpf H Urine WBC >100/hpf H Calcium Oxalate Crystal Moderate H Urine Bacteria Many (>30) H Urine Yeast 10-30/hpf H Ur Culture Indicated? Specimen cultured 06/22/21 07:45 WBC 7.9 RBC 3.10 L Hgb 8.8 L Hct 27.5 L MCV 88.6 MCH 28.5 MCHC 32.2 RDW 17.0 H Plt Count 348 Neut % (Auto) 66.2 Lymph % (Auto) 17.1 L [place] % (Auto) 7.4 Eos % (Auto) 8.3 H Baso % (Auto) 1.0 Neut # (Auto) 5200 Lymph # (Auto) 1300 [place] # (Auto) 600 Eos # (Auto) 600 H Baso # (Auto) 100 Lactate Urine Color Urine Appearance Urine pH Ur Specific [place] Urine Protein Urine Glucose (UA) Urine Ketones Urine Occult Blood Urine Nitrate Urine Bilirubin Urine Urobilinogen Ur Leukocyte Esterase Urine RBC Urine WBC Calcium Oxalate Crystal Urine Bacteria Urine Yeast Ur Culture Indicated? [facility] Medical History Hyperlipidemia Hypertension Parkinson's disease dementia Surgical History History of tonsillectomy Family History Other Unknown family medical history Social History household members: other Smoking Status: Never smoker alcohol intake: never Assessment & Plan Assessment & Plan narrative: Ms. Dunne is an 81W with [facility] parkinsons coming in with infected sacral decubitus ulcer down to bone. 1. Sacral decubitus ulcer stage IV, with osteomyelitis -WBC 11.9 but now improved to 7.9 -cultures pending, but wound preliminarily with staph species -patient had a dose of Zosyn and vancomycin in the ED, ordered vancomycin per pharmacy -ordered for broad spectrum antibiotics -s/p debridement on 06/20 -appreciate surgical recs, they do not think flap would do well in this area, she will need to remain off her sacrum, with frequent q2 hour position changes, they recommend gauze dressing changes -during surgery she clearly had necrotic infected bone, consistent with osteomyelitis, so will need likely 6 weeks of antibiotics -PICC ordered for senior living antibiotics 2. Parkinson's dementia, acute on chronic, present on admission -continue patient's carbidopa-levodopa and Remeron 3. Essential hypertension, chronic, present on admission -hold patient's losartan 4. Hyperlipidemia, chronic, present on admission -continue patient's simvastatin 5. Hypotension -occurred afternoon of 06/21 -ordered for IV fluids -reorder urinalysis and culture as last one was contaminated -follow up blood cultures -stop losartan as above -check cbc to make sure no acute drop in blood count Code status: DNR Surrogate decision maker: Estrella Hernandez daughter-DPOA COVID PCR: Negative COVID vaccination: Unknown
--- NOTE | 2021-06-22 14:21 | PC.NURSE ---
Sacral pressure ulcer cleansed with saline, measured, new photos taken. Wet to dry saline packing then covered with allevyn non adherent foam dressing. Patient tolerated well. Continue with off loading measures. Call light within reach.
--- NOTE | 2021-06-22 14:44 | DI.RAD.S_ITS ---
PROCEDURE: XR CHEST FOR PICC 1V INDICATIONS: PICC line confirmation/placement COMPARISON: None. FINDINGS: PICC was placed by the intravenous therapy team from the right side. Fluoroscopic spot film demonstrates the tip of PICC projecting to the area of the upper SVC. Moderate hiatal hernia. IMPRESSION: Tip of PICC projects to the area of upper SVC. Dictated by: Ji Villa M.D. on 06/22/2021 at 14:24 Approved by: Ji Villa M.D. on 06/22/2021 at 14:24
--- NOTE | 2021-06-22 15:09 | CM.DPC ---
Addendum entered by Avis Peterson R.N. 06/22/21 15:51: Neli from [facility] called back and confirmed that their fax is not working, and to resend on Wednesday. She did indicate that [facility] is a covered [facility] facility, and will be a place of acceptance once authorization is approved. Original Note: DCP Cont: Left Raymond Quinteros telehealth case manager, a message that faxed are still not going through. Gio in has also attempted to send clinicals. This telehealth case manager was attempting to fax over current wound orders, and last 2 days of MD progress notes. Also, in the message, let Neli know that family is requesting that patient go to [place], but have not been able to make contact today. P: DCP to continue to follow. Neli will not be telehealth case manager tomorrow, but her voice mail will be transferred to appropriate telehealth case manager. Will need to follow up on authorization and both facilities, [facility] and [facility], to see if she can be accepted. Avis Peterson RN/Business Systems Architect
[2021-06-22] MEDS: ATORVASTATIN 20 MG TABLET 10 MG PO (20:22)
[2021-06-22] MEDS: SENNOSIDES 8.6 MG TABLET 17.2 MG PO (20:22)
[2021-06-22] MEDS: MIRTAZAPINE 15 MG TABLET PO (20:22)
[2021-06-23] VITALS (12 sets, daily range): BP systolic 99–141; BP diastolic 59–75; PULSE 73–92; RESP 16–22; TEMP 35.9–36.6; O2SAT 92–95
[2021-06-23] MEDS: VANCOMYCIN 750 MG/150 ML PIGGYBACK 150 MG IV ×2 (00:21→08:13)
[2021-06-23] MEDS: PIPERACILLIN/TAZO 3.375 GM in SODIUM CHLORIDE 0.9% 100 ML 25 ML IV ×2 (04:50→12:18)
[2021-06-23] MEDS: VANCOMYCIN TROUGH 1 REQUEST MISC (08:04)
[2021-06-23] MEDS: ENOXAPARIN 40 MG/0.4 ML SYRINGE SUBCUT (08:12)
[2021-06-23] MEDS: CARBIDOPA-LEVODOPA 25/100 TABLET 1 EACH PO ×4 (08:12→20:08)
[2021-06-23] MEDS: SODIUM CHLORIDE 0.9% FLUSH 10 ML IV ×3 (08:12→20:07)
[2021-06-23 08:24] LABS: Vancomycin Trough 17.5 ug/mL (10-20)
--- NOTE | 2021-06-23 08:32 | CM.DPC ---
Addendum entered by ABEL Hernandez 06/23/21 15:43: ADD: SW spoke to admissions at [facility] and confirmed no updated COVID needed for pt d/c to their facility tomorrow. MIRELA called [facility] admissions Silvia and left msg to confirm they received referral and requested call this evening or yuko in the AM as BLS would need to be scheduled between IV-Abx dosing as their facility is a couple hours away. BF Addendum entered by ABEL Hernandez 06/23/21 14:35: ADD: SW spoke to admissions at [facility] and they can accept pt tomorrow afternoon is the preference. SW provided pt's SS# to [facility] from Dtr Estrella bedside and Dtr Estrella working to get copy of pt's COVID vaccination from [facility]. Per MD and RN and PT, recommendation is still BLS transport due to sacral ulcers and off loading recommendations. BINUD Olmedo kindly called [facility] and scheduled transport around 1200 to [facility] and SW completed BLS transport form but still needs MD signature. Pt's dosing for her 3 IV-Abxs tomorrow will be right after she arrives to [facility] and SW updated admissions on timing of transport and IV-Abx. SW updated Dtr Estrella bedside and Dtr had admissions Silvia from [facility] on the phone and requested to speak to SW. MIRELA inquired if they were contracted with [facility] and she confirmed and inquired if they have an opening and could accept pt tomorrow as pt will be stable for d/c by tomorrow and Silvia from [facility] stated she potentially may be able to accept but willing to review and MIRELA faxed referral to fax [phone] and Silvia states her direct number is [phone]. BF Addendum entered by ABEL Hernandez 06/23/21 13:11: ADD: Still no return call from admissions at [facility] but return call from [facility] in [place] stating that they reviewed and spoke to pt's Dtr Silvia and they have concerns with pt's acuity and d/c plan and therefore decline accepting pt at this time and they updated Dtr Silvia as well. MIRELA received a call from [facility] GRAHAM Arauz stating pt is approved for SNF auth to [facility] as pt already accepted there. Per MD, cultures returned and IV-Abx changed to Cipro, Flagyl, and Doxy for 1-2 week course. MIRELA faxed new med list to [facility] and left admissions a msg inquiring if they can accept today as BLS will be needed for transport. BF Addendum entered by ABEL Hernandez 06/23/21 11:20: ADD: Call from pt's other Dtr Silvia ([phone]) stating that they are requesting referral for SNF also be sent to [facility] ([phone]) to review as close to family and likely where pt will transition into LTC there in that town. MIRELA called [facility] admissions and confirmed they have openings, contracted with [facility], and willing to review and requested referral be faxed to [phone] and aware pt may be stable for d/c today or tomorrow pending cultures. MIRELA faxed requested referral for review at [phone]. BF Addendum entered by ABEL Hernandez 06/23/21 09:39: ADD: MIRELA received a call from pt's Dtr Estrella checking in and SW updated her on no return call from [facility] yet but acceptance at [facility] and explained that if pt medically stable to d/c and no acceptance by [facility] at d/c then pt cannot be kept at the hospital as an accepting facility found and Dtr acknowledged understanding and will try to call [facility] herself but agreeable to [facility] if needed. MIRELA received a return call from [facility] GRAHAM Arauz requesting additional records to show need for equipment operator intermodal yard IV-Abx and wound care. MIRELA faxed requested documents at [phone]. MIRELA updated RN and awaiting rounds with MD to determine if pt medically stable to d/c yet today. BF Original Note: Ongoing SNF planning MIRELA faxed updated notes on IV-Abx and wound care packet to [facility] as [facility] sameerax not working over the w/e and called assigned GRAHAM Quinteros but was re-routed to Regla as Neli not working today and Regla covering for [facility] and left msg requesting to confirm she has the SNF referral and information she needs to review towards [facility] SNF auth for possible d/c today. MIRELA called Dtr's preferred SNF in [facility] admission [phone], and had to leave a msg to inquire about bed availability and fax number to review clinicals and possible d/c today. SW called [facility] admissions and they confirm that they could accept pt and will get Vaccination record from [facility] and request pt's SS# which is not in the computer. SW updated that pt may be stable for d/c today and [facility] will discuss which room pt could be admitted into. SW faxed requested PASRR to review to [facility]. Plan: to follow closely for [facility] review for SNF auth and return call from [facility] SNF as this is family preference but [facility] accepts already. ABEL Hernandez
[2021-06-23] MEDS: VANCOMYCIN PEAK 1 REQUEST MISC (10:12)
[2021-06-23 10:25] LABS: Hematocrit 30.1 % (36-46); Hemoglobin 9.8 g/dL (12.0-16.0); Mean Corpuscular HGB Conc 32.4 % (30-36); Mean Corpuscular Hemoglobin 28.7 PG (26-34); Mean Corpuscular Volume 88.7 fL (80-100); Platelet Count 377 X10^3/uL (150-400); Red Cell Distribution Width 17.1 % (11.6-14.8); White Blood Cell Count 11.8 X10^3/uL (4.5-11.0)
[2021-06-23 10:36] LABS: Alanine Aminotransferase 8 IU/L (<35); Albumin 2.8 g/dL (3.5-5.0); Albumin Globulin Ratio 0.9 (1.0-2.8); Alkaline Phosphatase 64 U/L (38-126); Aspartate Aminotransferase 21 IU/L (14-36); Bilirubin Total 0.4 mg/dL (0.2-1.3); Bilirubin Unconjugated 0.3 mg/dL (0.0-1.1); Blood Urea Nitrogen 16 mg/dL (7-17); Calcium 9.5 mg/dL (8.4-10.2); Carbon Dioxide 27 mmol/L (22-32); Chloride 108 mmol/L (98-107); Estimated Glomerular Filt Rate > 60.0 mL/min (>60); Glucose 128 mg/dL (80-110); HEMOLYSIS 23 (0-50); Lipase 60 U/L (23-300); Potassium 3.8 mmol/L (3.4-5.1); Sodium 139 mmol/L (137-145); Total Protein 5.8 g/dL (6.3-8.2)
--- NOTE | 2021-06-23 11:00 | OT.IP.TRT ---
Current Diagnoses Pressure ulcer of sacral region, stage 4 (06/19/21) Surgery Performed Operation Date: 06/20/21 16:15 Actual Procedures p I&D sacral ulcer - Mayank Flores MD Occupational Therapy Treatment Note M2 OT-IP Current Condition Start: 06/21/21 17:54 Freq: Status: Active Protocol: Document 06/21/21 14:16 [facility] (Rec: 06/21/21 18:22 [facility] [id number]) Occupational Therapy Current Condition Current Condition Evaluation Date 06/21/21 Treatment Diagnosis Stage 4 sacral decubitus ulcer , decreased mobiltity Diagnosis Onset Date 06/19/21 Post Operative Precautions Other Precautions Per Dr. Flores to keep pt off sacrum and q2hr position change. Per Dr. Jacques cabral to get pt up. M3 OT- IP Subjective and Pain Start: 06/21/21 17:54 Freq: Status: Active Protocol: Document 06/23/21 08:48 [facility] (Rec: 06/23/21 12:17 [facility] [id number]) OT- Subjective Occupational Therapy Visit Type Type Treatment Note Visit Start Time 08:48 Visit Stop Time 11:00 Total Visit Minutes 17 Occupational Therapy Visit Comments Patient Comments Pt initially agreed with [facility] to get up. Pt seen from [id number] and [id number]. Patient/Caregiver Goals To be able to walk again. OT Pain Assessment Pain When Pain Assessed During Mobility Pain Present Pain Present Pain Reported Location Left Leg Intensity 8 Scale Used Numeric (0 - 10) M4 OT- IP ADL's Start: 06/21/21 17:54 Freq: Status: Active Protocol: Document 06/23/21 08:48 [facility] (Rec: 06/23/21 12:17 [facility] [id number]) OT [id number] Comments OT Self-Feeding Comments Not at meal time. OT ADL-Grooming Comments OT Grooming Comments Pt states did not have any energy to try to wash her face at this time. OT ADL-Dressing General Eval Lower Body Dressing Ability Total Assistance Areas Needing Assistance Socks M5 OT- IP IADL's Start: 06/21/21 17:54 Freq: Status: Active Protocol: Document 06/21/21 14:16 [facility] (Rec: 06/21/21 18:22 [facility] [id number]) OT-Instrumental Activities of Daily Living Home Safety Awareness Home Safety Comments Pt has decreased insight to her needs. Pt is very anxious of falling. Medication Management Medication Management Caregiver Administers Money Management Money Management Caregiver Provides Assistance Meal Preparation Meal Preparation Caregiver Provides Assist Lab Pack Chemist Lab Pack Chemist Caregiver Provides Assist Driving Driving Caregiver Provides Assist M6 OT- IP Functional Cognition Start: 06/21/21 17:54 Freq: Status: Active Protocol: Document 06/23/21 08:48 [facility] (Rec: 06/23/21 12:17 [facility] [id number]) Cognitive Factors Limiting Selfcare Function Cognitive Ability Level of Alertness Alert,Drowsy Patient Orientation Name Attention Span Ability Capable of Focused Attention, Capable of Sustained Attention Ability to Follow Commands Able to Follow One Step Commands with Increased Time, Able to Follow One Step Commands with Repetition Memory Description Short Term Impaired Cognitive Comments Cognitive Assessment Comments Pt very tired and drowsy and states not feeling well. Pt did not recall if she ate anything for breakfast. Pt however states she is allergic to eggs, to notify nursing. Asked if pt wanted to try to to have a protein drink or anything to eat. Pt states maybe later. M7 OT- IP Mobility and Balance Start: 06/21/21 17:54 Freq: Status: Active Protocol: Document 06/23/21 08:48 [facility] (Rec: 06/23/21 12:17 [facility] [id number]) OT- Bed Mobility Assessment Rolling Type of Rolling Bilateral Level of Assistance Maximum Assistance,2 Person Assistance,Bedrails OT-Transfer Assessment Comments Mobility Comments Pt too tired to try to get up today and able to roll with MAX A X2 and assist for hand placement to help roll on her side. Assist for all positioning needs. 1st able to assist to roll to left side and then on the second time in , able to assist to roll to the right. M8 OT- IP Objective Assessments Start: 06/21/21 17:54 Freq: Status: Active Protocol: Document 06/21/21 14:16 [facility] (Rec: 06/21/21 18:22 [facility] [id number]) OT Gross Range of Motion Upper Extremity Range of Motion Assessment Within Functional Limits OT Strength Upper Extremity Strength Assessment Within Functional Limits OT-Muscle Tone Assessment Muscle Tone WNL No M9 OT- IP Assessment and Plan Start: 06/21/21 17:54 Freq: Status: Active Protocol: Document 06/23/21 08:48 [facility] (Rec: 06/23/21 12:17 [facility] [id number]) OT Summary Assessment and Plan Potential Rehabilitation Potential Fair Analytic Complexity at Evaluation High Summary OT Impairments Pain,Range of Motion,Strength, Balance,Coordination,Tone, Functional Cognition, Functional Mobility,Self- Feeding,Grooming,Dressing, Toileting,Bathing,Activity Tolerance Progress Towards Goals Slow Progress due to Pain,Slow Progress due to Medical Issues,Slow Progress due to Activity Tolerance,Slow Progress due to Cognition Assessment Summary Pt not feeling well and initially agreed to get up and then when trying not wanting. to get up. Pt looking to go to skilled rehab and at this time would be safer to go by S stretcher due to pt not able to tolerate sitting up today , in addition pt has sacral ulcers. Goals Self-Feeding Goal Moderate Assistance Grooming Goal Minimal Assistance Bathing Goal Moderate Assistance OT-Other Goals Goal for bathing is for sponge bathing. Days to Meet Goals 30 Frequency of Treatment Frequency Of Treatment Once a Day Treatment Plan OT Treatment Plan ADL Training,Functional Cognition Training,Functional Mobility,Patient/Family Education,Discharge Planning Other Treatment Recommendations and Next Work on pt's midline control Treatment Focus while seated and doing ADl needs while seated at edge of the bed with MODA X 1. Discharge Recommendations OT Discharge Recommendations SNF Rehab Transportation Needs at Discharge Stretcher/Ambulance
--- NOTE | 2021-06-23 11:14 | PT.IPTN ---
Current Diagnoses Pressure ulcer of sacral region, stage 4 (06/19/21) Surgery Performed Operation Date: 06/20/21 16:15 Actual Procedures p I&D sacral ulcer - Mayank Flores MD Physical Therapy Treatment Note M2 PT-IP Current Condition Start: 06/20/21 14:12 Freq: NEEDED Status: Active Protocol: Document 06/20/21 11:38 AB (Rec: 06/20/21 15:00 AB [id number]) Physical Therapy Current Condition Current Condition Evaluation Date 06/20/21 Treatment Diagnosis Stage 4 sacral decubitus ulcer ; PD; generalized weakness Onset Date 06/19/21 Precautions Other Precautions Stage 4 sacral ulcer M3 PT-IP Subjective Start: 06/20/21 14:12 Freq: NEEDED Status: Active Protocol: Document 06/23/21 11:04 LJ (Rec: 06/23/21 11:14 LJ [id number]) Subjective Physical Therapy Visit Type Type Treatment Note Visit Start Time 10:45 Visit Stop Time 11:02 Total Visit Minutes 17 Number of MILEAGE CLERK Visits 3 Physical Therapy Visit Comments Patient Comments Split treatment with OT M4 PT-IP Mobility and Gait Start: 06/20/21 14:12 Freq: NEEDED Status: Active Protocol: Document 06/23/21 11:04 LJ (Rec: 06/23/21 11:14 LJ [id number]) PT-Bed Mobility Assessment Rolling Type of Rolling Bilateral Level of Assist Maximal Assistance,2 Person Assistance PT-Transfer Assessment Comments Mobility Comments Pt with diminished energy and willingness to participate in therapy. Pt need cueing to roll to left side first treatment and right side second treatment. Required increased assist with LEs. First tx pt was rolled to her left side and required MaxA with LEs. Second treatment pt was rolled to her right side and similarly had difficulty participating in moving her LEs. For transfer to SNF she will require stretcher. M5 PT-IP Objective Assessments Start: 06/20/21 14:12 Freq: NEEDED Status: Active Protocol: Document 06/20/21 11:38 AB (Rec: 06/20/21 15:00 AB [id number]) Orientation Orientation/Cognition Level of Alertness Alert Orientation Name Safety Awareness Decreased Safety Awareness Memory Description Short Term Impaired Gross Range of Motion Lower Extremity ROM Assessment Bilaterally Impaired Impairments B ankel limited DF BLE rigidity/tightness with PROM with c/o pain Strength Lower Extremity Strength Assessment Bilaterally Impaired Hip 2-/5 Knee 2-/5 Ankle 1+/5 Comments Strength Comments unable to accurately complete MMT due to pt's rigidity Muscle Tone Muscle Tone WNL No Muscle Tone Location Bilateral Lower Extremity Type of Tone Hypertonicity,Rigidity Severity of Tone Moderate Manifistation of Tone Resting Tremors M6 PT-IP Treatment Start: 06/20/21 14:12 Freq: NEEDED Status: Active Protocol: Document 06/23/21 11:04 LJ (Rec: 06/23/21 11:14 LJ [id number]) Physical Therapy Treatment Education Education Provided Safety M7 PT-IP Assessment and Plan Start: 06/20/21 14:12 Freq: NEEDED Status: Active Protocol: Document 06/23/21 11:04 [facility] (Rec: 06/23/21 11:14 LJ [id number]) PT Summary Assessment and Plan Potential Rehabilitation Potential Fair Status of Condition at Evaluation Evolving Summary Impairments Pain,ROM,Strength,Balance, Coordination,Sensation,Tone, Cognition,Bed Mobility, Transfers,Gait,Activity Tolerance Assessment Summary Pt requiring MaxA x2 for all bed mobility and positioning. Unwilling to participate in attempting to sit on side of bed.Pt will require SNF rehab to improve strength and mobility. Goals Bed Mobility Goal Moderate Assistance Transfer Goal Moderate Assistance,Front Wheeled Walker Other Goals improve sitting balance from P - to F improve bed mobility and transfer using FWW to CGA improve ambulation using FWW 25 ft mod A Days to Meet Goals 10 Frequency of Treatment Frequency Of Treatment Once a Day Treatment Plan Physical Therapy Treatment Plan Bed Mobility Training,Transfer Training,Gait Training, Therapeutic Exercise,Balance Retraining,Post Op Education, Discharge Planning,Hot or Cold Pack,Neuromuscular Re-ed, Coordination Retraining,Manual Therapy Other Recommendations and Next Treatment sitting balance, bed mobility Focus Recommendations To Nursing Amount of Assist Needed Mechanical Lift Discharge Recommendations PT Discharge Recommendations SNF Rehab Transportation Needs at Discharge Stretcher/Ambulance
[2021-06-23 12:22] LABS: Vancomycin Peak 22.5 ug/mL (20-40)
[2021-06-23] MEDS: CIPROFLOXACIN 400 MG/200 ML PIGGYBACK 200 MG IV (13:13)
[2021-06-23] MEDS: metroNIDAZOLE 500 MG/100 ML PIGGYBACK 100 MG IV ×2 (13:15→20:09)
[2021-06-23] MEDS: DOXYCYCLINE 100 MG in SODIUM CHLORIDE 0.9% 100 ML IV (14:31)
--- NOTE | 2021-06-23 14:32 | CM.DPNOTE ---
Called [facility] BLS and spoke to Kristine at 1430 for pt. lease picker tomorrow, 06/24/21 at Nicolasa's request. Kristine said they will arrive by 11:45 on 06/24. I mentioned pt. will have a montoya and needs to lay on her side due to wounds. Shara Saenz CM asst.
--- NOTE | 2021-06-23 14:55 | PM.PN.1 ---
Subjective Subjective Date Patient Seen: 06/23/21 Time Patient Seen: 08:00 Interval history: Today she says she doesn't feel good. She feels down about her current medical condition. She denies any pain, sob, or fever. Exam Vital Signs (past 8 hours): - 06/23/21 08:07 06/23/21 10:11 06/23/21 13:00 Temperature 96.7 F L 96.6 F L Pulse Rate 82 92 H Respiratory Rate 20 20 Blood Pressure 141/75 H 99/59 L Pulse Oximetry 95 95 94 06/23/21 14:00 Temperature Pulse Rate Respiratory Rate Blood Pressure Pulse Oximetry 94 Oxygen Delivery Method Room Air Oxygen Flow Rate 0 Narrative Exam Narrative: GENERAL-elderly, frail woman, no acute distress CVS- regular rate, no peripheral edema RESP-unlabored respiratory effort, no audible wheezing GI-soft, nontender nondistended SKIN- [place] ulcer now s/p debridement, area of approximately 5x6 cm with visible fat, tendon, and bone NEURO-alert disoriented Objective Labs Result Diagrams: 06/23/21 10:05 06/23/21 10:05 Labs: Laboratory Results - last 24 hr 06/21/21 06/23/21 06/23/21 18:10 07:45 10:05 WBC 11.8 H RBC 3.40 L Hgb 9.8 L Hct 30.1 L MCV 88.7 MCH 28.7 MCHC 32.4 RDW 17.1 H Plt Count 377 Sodium Potassium Chloride Carbon Dioxide BUN Creatinine Estimated GFR BUN/Creatinine Ratio Glucose Calcium Total Bilirubin Conjugated Bilirubin Unconjugated Bilirubin AST ALT Alkaline Phosphatase Total Protein Albumin Globulin Albumin/Globulin Ratio Lipase Urine Color Yellow Urine Appearance Cloudy Urine pH 5.5 Ur Specific [place] 1.015 Urine Protein 2+ H Urine Glucose (UA) Negative Urine Ketones 1+ H Urine Occult Blood 2+ H Urine Nitrate Negative Urine Bilirubin Negative Urine Urobilinogen 0.2 Ur Leukocyte Esterase 2+ H Urine RBC 5-10/hpf H Urine WBC >100/hpf H Calcium Oxalate Crystal Moderate H Urine Bacteria Many (>30) H Urine Yeast 10-30/hpf H Ur Culture Indicated? Specimen cultured Vancomycin Peak Vancomycin Trough 17.5 06/23/21 06/23/21 10:05 10:30 WBC RBC Hgb Hct MCV MCH MCHC RDW Plt Count Sodium 139 Potassium 3.8 Chloride 108 H Carbon Dioxide 27 BUN 16 Creatinine 0.32 L Estimated GFR > 60.0 BUN/Creatinine Ratio 50.0 H Glucose 128 H Calcium 9.5 Total Bilirubin 0.4 Conjugated Bilirubin 0.0 Unconjugated Bilirubin 0.3 AST 21 ALT 8 Alkaline Phosphatase 64 Total Protein 5.8 L Albumin 2.8 L Globulin 3.0 Albumin/Globulin Ratio 0.9 L Lipase 60 Urine Color Urine Appearance Urine pH Ur Specific [place] Urine Protein Urine Glucose (UA) Urine Ketones Urine Occult Blood Urine Nitrate Urine Bilirubin Urine Urobilinogen Ur Leukocyte Esterase Urine RBC Urine WBC Calcium Oxalate Crystal Urine Bacteria Urine Yeast Ur Culture Indicated? Vancomycin Peak 22.5 Vancomycin Trough PFSH Medical History Hyperlipidemia Hypertension Parkinson's disease dementia Surgical History History of tonsillectomy Family History Other Unknown family medical history Social History household members: other Smoking Status: Never smoker alcohol intake: never Assessment & Plan Assessment & Plan narrative: Ms. Dunne is an 81W with [facility] parkinsons coming in with infected sacral decubitus ulcer down to bone. 1. Sacral decubitus ulcer stage IV, with question of osteomyelitis -WBC 11.9 but now improved to 7.9 -cultures pending, but wound preliminarily with staph species -patient had a dose of Zosyn and vancomycin in the ED, ordered vancomycin per pharmacy -ordered for broad spectrum antibiotics -s/p debridement on 06/20 -appreciate surgical recs, they do not think flap would do well in this area, she will need to remain off her sacrum, with frequent q2 hour position changes, they recommend gauze dressing changes -during surgery she clearly had necrotic infected bone, consistent with osteomyelitis, so will need likely 6 weeks of antibiotics -PICC ordered for remote computer terminal operator antibiotics, likely will need at least 1-2 weeks of IV antibiotics, MRI will be done to eval for osteomyelitis 2. Parkinson's dementia, acute on chronic, present on admission -continue patient's carbidopa-levodopa and Remeron 3. Essential hypertension, chronic, present on admission -hold patient's losartan 4. Hyperlipidemia, chronic, present on admission -continue patient's simvastatin 5. Hypotension -occurred afternoon of 06/21 -ordered for IV fluids -reorder urinalysis and culture as last one was contaminated -follow up blood cultures -stop losartan as above -check cbc to make sure no acute drop in blood count Code status: DNR Surrogate decision maker: Estrella Hernandez daughter-DPOA COVID PCR: Negative COVID vaccination: Unknown Dispo: likely SNF tomorrow
--- NOTE | 2021-06-23 15:01 | DI.MRI.S_ITS ---
PROCEDURE: MR PELIS WO/W CON INDICATIONS: sacral ulcer, please image sacrum for evidence of osteomyeli TECHNIQUE: Noncontrast coronal T1 spin echo and STIR, sagittal T1 spin echo with fat saturation and STIR, axial T1 spin echo and T2 fast spin echo with fat saturation. After the administration of contrast, axial/sagittal/coronal T1 spin echo with fat saturation through the pelvis . COMPARISON: [facility], CR, XR CHEST FOR PICC 1V, 06/22/2021, 14:51. [facility], CT, CT ABDOMEN PELVIS W CON, 06/19/2021, 20:25. FINDINGS: Image quality: Excellent. Bones: The visualized bone marrow demonstrates normal signal on all sequences except at the inferior margin of the sacrum at the sacrococcygeal junction and involving the coccyx itself. Elevated fluid signal is seen in this area within the marrow space both on STIR pulse sequence and postcontrast fat suppressed imaging. Osseous erosion is not present, however.. The overlying cortex appears intact. No abnormal intraosseous enhancement. Soft tissues: No soft tissue masses are visualized but there is a decubitus ulceration extending from the skin surface directly to the posterior border of the coccyx, with a mild degree of rim enhancement. The appearance is consistent with infectious etiology, and there also is soft tissue edema in this general region extending to involve the skin surface, perhaps reflecting inflammatory cellulitis.. The scanned muscles demonstrate normal overall bulk and internal signal. Subcutaneous tissues appear normal as well. No abnormal soft tissue enhancement. IMPRESSION: Deep ulceration from skin surface to the posterior border of the coccyx and sacrococcygeal junction is present, measuring approximately 3.5 cm craniocaudad, 2.6 cm AP, and 2.5 cm in maximal transverse dimension. This is associated with evidence of early osteomyelitis, mild in overall severity, involving the coccyx and also the sacrococcygeal junction. Osteolysis is not associated. Note is made of rectal impaction by stool, with overall craniocaudad and transverse dimensions of this impacted stool of 16.7 cm and 9.1 cm, respectively. Atrophic musculature, body wall anasarca. Probable paraplegia/quadriplegia. Dictated by: Chaz Becerra M.D. on 06/23/2021 at 16:43 Approved by: Chaz Becerra M.D. on 06/23/2021 at 16:50
[2021-06-23] MEDS: SENNOSIDES 8.6 MG TABLET 17.2 MG PO (20:00)
[2021-06-23] MEDS: DOCUSATE 100 MG CAPSULE PO (20:07)
[2021-06-23] MEDS: FLUCONAZOLE 150 MG TABLET PO (20:07)
[2021-06-23] MEDS: ATORVASTATIN 20 MG TABLET 10 MG PO (20:08)
[2021-06-23] MEDS: MIRTAZAPINE 15 MG TABLET PO (20:08)
[2021-06-24] VITALS (7 sets, daily range): BP systolic 129–136; BP diastolic 64–87; PULSE 81–111; RESP 12–20; TEMP 36–36.8; O2SAT 91–94
[2021-06-24] MEDS: CIPROFLOXACIN 400 MG/200 ML PIGGYBACK 200 MG IV ×2 (03:52→12:48)
[2021-06-24] MEDS: DOXYCYCLINE 100 MG in SODIUM CHLORIDE 0.9% 100 ML IV (04:55)
[2021-06-24] MEDS: metroNIDAZOLE 500 MG/100 ML PIGGYBACK 100 MG IV ×2 (05:49→14:22)
[2021-06-24 06:21] LABS: Hematocrit 27.1 % (36-46); Hemoglobin 8.9 g/dL (12.0-16.0); Mean Corpuscular HGB Conc 32.8 % (30-36); Mean Corpuscular Hemoglobin 28.9 PG (26-34); Mean Corpuscular Volume 88.2 fL (80-100); Platelet Count 350 X10^3/uL (150-400); Red Blood Cell Count 3.07 X10^6/uL (4.0-5.2); Red Cell Distribution Width 16.9 % (11.6-14.8); White Blood Cell Count 9.7 X10^3/uL (4.5-11.0)
--- NOTE | 2021-06-24 08:26 | CM.DPC ---
Addendum entered by Paradise Echavarria LPN 06/24/21 15:17: Pt did received the d/c orders and these have just been completed with assist of DARI Gonzalez. Have updated JC, report has been called and merari shift staff are updated as they will be with pt as she leaves. Daughter has been here all afternoon. ARTUR #2 presented to her at approx 1300. Addendum entered by Paradise Echavarria LPN 06/24/21 12:04: Thus far no d/c orders are in place. Addendum entered by Paradise Echavarria LPN 06/24/21 10:28: Estrella will now visit her mother here in the hospital since d/c time is much later. She will bring the vax card. Will fax this to [facility] and given to [facility] to scan into EMR. Addendum entered by Paradise Echavarria LPN 06/24/21 10:19: Dr. Hanna has now confirmed in Rounds that he will need to consult with ID specialist as to what the final antibiotic therapy will be. He says this will likely now be needed for 6 weeks. He will not have all this in place by 1145: Shara HENDRICKSON has now cancelled this Have updated [facility]/[place]/admissions. She says they can accept pt later today with latest time to leave at 1600. Shara has now reset the time for 1600. DARI Gonzalez is updated. Will now update daughter Estrella. Original Note: DCP: continued. Case again received and followed up on events of last 3 days. DC to snf is anticipated today but no orders are yet in place. EMEKA Olmedo states BLS transport was set up yesterday for pick remover today at 1145 and to [facility]. Silvia/Andrew left a message last night about 1530 saying the they would not have a bed available for this patient until at least Wednesday 06/27. [place]/ [facility] has just called and is requesting the [facility] auth #. She will call [facility] GRAHAM Arauz and also Neli Fletcher in attempt to obtain same but note from Nestor Baldwin yesterday does confirm that auth is in place. Have spoken with pt's daughter Estrella with update. She will meet her mother at [facility] today. She is still attempting to obtain the COVID vax card from pharmacy in [place] and will follow up with [facility] re this. Note also MRI from last evening shows pt with rectal impaction as well as verifying the osteomyelitis. Will discuss in Team Rounds and be following. DARI Gonzalez does say that nursing staff are aware of bowel concerns and treating for same.
[2021-06-24] MEDS: DOCUSATE 100 MG CAPSULE PO (09:19)
[2021-06-24] MEDS: ENOXAPARIN 40 MG/0.4 ML SYRINGE SUBCUT (09:19)
[2021-06-24] MEDS: CARBIDOPA-LEVODOPA 25/100 TABLET 1 EACH PO ×2 (09:19→12:48)
[2021-06-24] MEDS: polyethylene glycoL 3350 17 GM POWD.PACK PO (09:19)
[2021-06-24] MEDS: SODIUM CHLORIDE 0.9% FLUSH 10 ML IV (09:20)
--- NOTE | 2021-06-24 10:43 | PM.DS.1 ---
History of Present Illness History of Present Illness Chief complaint: Sacral Decubitus Ulcer Narrative: Per Josey Ted: Patient is an 81-year-old female Amna Dunne who presented to the ED via EMS from [facility] [place] for a chief complaint of large sacral decubitus ulcer that is not resolving. Apparently the patient had been receiving home home health wound care visits in the facility for several weeks without resolution of this decubitus ulcer and so she was requested to come to the hospital. Patient has an altered mental status due to her diagnosis of Parkinson's and was unable to participate in her HPI or ROS. And the ED chart lacked any documentation, had no further information for this patient. Dr. Ruiz did consult in the ED and stated that she would consult on the patient in the morning. I did go down and do admit exam of the patient in the ED, patient was resting and dressing had been placed back on and I was unable to assess the decubitus ulcer appropriately at that time. Dr. Macedo did verbalize that it was a significant sacral decubitus ulcer Stage 4. Patient's vitals upon admit febrile with a temp of 99.3?, BP 109/80 which is baseline for this patient, HR 84, RR 24, O2 saturation 93% on room air. Patient had a mildly elevated WBC 11.9 with a left shift neutrophils 9000, HGB 11.3, HCT 34. Lactate, lipase, procalcitonin were all within normal limits, albumin slightly decreased at 3.2. Patient urine was positive for UTI and was sent for culture patient has a catheter in, so most likely catheter related UTI. Patient was orientated to place and person but was unable to provide any further information. Patient admitted for sacral decubitus ulcer and UTI. Discharge Providers Provider Date of admission: 06/19/21 21:11 Discharge Date: 06/24/21 Primary care physician: Rhonda Bowen DO Consults: 06/19/21 21:23 Consult to General Surgery Stat Comment: Consulting Provider: Timoteo Ruiz Reason for consultation: Sacral decubitus ulcer Has provider been notified: Yes Consult to Occupational Therapy Evaluate & Treat Comment: Decubitus sacral ulceration Physician Instructions: Evaluate and treat Consult to Wound Care Stat Comment: Consulting Provider: [facility] 06/19/21 21:24 Consult to Physical Therapy Evaluate & Treat Comment: Decubitus sacral ulceration Physician Instructions: Evaluate and Treat Discharge provider: Dixon Hanna MD Summary Hospital Course Discharge Diagnosis: 1. 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 Parkinson's dementia 3. Hypertension 4. Hyperlipidemia Hospital Course: Ms. Dunne has a history of advancing parkinsons disease. She has been living at an [facility] recently as she is physically declining. She developed a large sacral decubitus ulcer to bone that became infected. She had debridement with Dr. Ruiz. She was recommended to have gauze packing. Her cultures grew back staph epi from wound swab, and likely her infection is multi-bacterial given the region. Because of this she was initially on broad spectrum antibiotics. Did discuss with ID who recommended initially IV antibiotics which she will be on doxy, cipro, flagyl for one week, before plan for switching to oral antibiotics with doxycycline and augmentin. She had MRI that confirmed mild edema in the sacrum. She is discharged to SNF to attempt PT and receive antibiotics. Of note had long discussion with patient's daugther about the patient's poor prognosis to heal. She notes that patient recently lost her , and daughter feels she has not been as energetic since and she does not know how dedicated patient will be with physical therapy. One possible option discussed was more aggressive treatment with future surgery, consideration of bone biopsy to tailor antibiotics, and even placement of ostomy to reduce the risk of wound contamination. At this time patient's daughter does not want to pursue those options, and wants to see how she progresses on antibiotics. Did discuss with her that I thought patient would have a very unlikely chance to recover given her advancing debility and severity of the wound. She will be referred to ID clinic at [facility] Exam Vital Signs (past 8 hours): Oxygen Delivery Method Room Air Oxygen Flow Rate 0 Narrative Exam Narrative: GENERAL-elderly, frail woman, no acute distress CVS- regular rate, no peripheral edema RESP-unlabored respiratory effort, no audible wheezing GI-soft, nontender nondistended SKIN- ducubuitus ulcer now s/p debridement, area of approximately 5x6 cm with visible fat, tendon, and bone with currently packed NEURO-alert disoriented Objective Labs Result Diagrams: 06/24/21 06:00 06/23/21 10:05 [facility] Medical History Hyperlipidemia Hypertension Parkinson's disease dementia Surgical History History of tonsillectomy Family History Other Unknown family medical history Social History household members: other Smoking Status: Never smoker alcohol intake: never Discharge Plan Discharge Plan Patient Disposition: SNF Transfer to: [facility] Provider Discharge Comment: Ms. Dunne was admitted with a large sacral wound. She was found to have infection down to the bone, consistent with osteomyelitis. She should be on doxycycline, ciprofloxacin, flagyl.IV for one week. At that point she can then be transitioned to oral antibiotics if she is doing well with oral doxycycline and oral augmentin for a plan for six week course. She should follow up with wound care, with Dr. Flores for surgery in 2-3 weeks. She should follow up with ID at [facility] for follow up for her osteomyelitis. Daughter wanted to treat patient conservatively for now, did not want to proceed with further bone biopsy, and did not want to proceed with ostomy to help prevent wound infection. The plan is to see if she can regain strength and improves with antibiotics, but she will need close follow up to see if antibiotic course will need to be changed. Please do not leave patient on ciprofloxacin for extended period of time due to GLORY. She had her losartan held on discharge because she had an episode of low blood pressure in the hospital. Discharge orders & Medications Prescriptions: New doxycycline hyclate [Doxy-100] 100 mg Recon Soln 100 mg IV Q12H Qty: 10 RF: 0 docusate sodium [DOK] 100 mg Capsule 100 mg PO BID Qty: 20 RF: 0 ciprofloxacin in 5 % dextrose 400 mg/200 mL Piggyback 400 mg IV Q12H Qty: 14 RF: 0 metronidazole in NaCl (iso-os) 500 mg/100 mL Piggyback 500 mg IV Q8H Qty: 21 RF: 0 Continued hydrocodone-acetaminophen 5-325 mg tablet 5 - 325 tab PO Q6H PRN (Reason: Pain (Scale Score 4-6)) RF: 0 acetaminophen 500 mg tablet 500 mg PO Q8H PRN (Reason: Pain (Scale Score 1-3)) RF: 0 simvastatin 20 mg tablet 20 mg PO BEDTIME RF: 0 mirtazapine 15 mg tablet 15 mg PO BEDTIME RF: 0 carbidopa-levodopa 25-100 mg Tablet 1 tab PO QID RF: 0 omega 5-yfd-pso-fish oil [Fish Oil] 1,000 mg (120 mg-180 mg) Capsule 1 cap PO DAILY RF: 0 cranberry extract 650 mg Capsule 650 mg PO DAILY RF: 0 Discontinued losartan 100 mg tablet 100 mg PO DAILY RF: 0 Follow up/Referrals: Rhonda Bowen DO [Primary Care Provider] - Diet/Activity/Treatments Diet: Regular Liquid consistency: Normal/Thin Food texture: Regular [facility] Rehab type: Physical therapy and Occupational therapy Discharge Data Primary Care Provider: Rhonda Bowen
[2021-06-24 11:02] LABS: COVID19 -Nasal RAPID Negative (Negative)
--- NOTE | 2021-06-24 11:25 | CM.DPNOTE ---
Called and changed transport on 06/24/21 with Rebecca at [facility] to 1600 at Paradise's request. Faxed FS, Ambulance form and gave Kristine the insurance number to ensure pt. is covered with this transport. Shara Saenz CM Asst.
--- NOTE | 2021-06-24 11:42 | OT.IP.TRT ---
Current Diagnoses Pressure ulcer of sacral region, stage 4 (06/19/21) Surgery Performed Operation Date: 06/20/21 16:15 Actual Procedures p I&D sacral ulcer - Mayank Flores MD Occupational Therapy Treatment Note M2 OT-IP Current Condition Start: 06/21/21 17:54 Freq: Status: Active Protocol: Document 06/21/21 14:16 [facility] (Rec: 06/21/21 18:22 [facility] [id number]) Occupational Therapy Current Condition Current Condition Evaluation Date 06/21/21 Treatment Diagnosis Stage 4 sacral decubitus ulcer , decreased mobility Diagnosis Onset Date 06/19/21 Post Operative Precautions Other Precautions Per Dr. Flores to keep pt off sacrum and q2hr position change. Per Dr. Jacques cabral to get pt up. M3 OT- IP Subjective and Pain Start: 06/21/21 17:54 Freq: Status: Active Protocol: Document 06/24/21 11:47 [facility] (Rec: 06/24/21 11:58 [facility] [id number]) OT- Subjective Occupational Therapy Visit Type Type Treatment Note Visit Start Time 11:25 Visit Stop Time 11:42 Total Visit Minutes 17 Occupational Therapy Visit Comments Patient Comments Pt agreed to do grooming and oral care while seated in bed. Patient/Caregiver Goals To be able to walk again. OT Pain Assessment Pain When Pain Assessed At Rest Pain Present Pain Present Denied Pain M4 OT- IP ADL's Start: 06/21/21 17:54 Freq: Status: Active Protocol: Document 06/24/21 11:47 [facility] (Rec: 06/24/21 11:58 [facility] [id number]) OT [id number] Comments OT Self-Feeding Comments Pt able to hold Ensure and drink from the bottle after set-up. Pt hands tremor L>>R. OT ADL-Grooming General Evaluation Grooming Ability Minimal Assistance Comments OT Grooming Comments Pt able to wash her hands and face after set-up and initiated to brush the right side of her hair and then needing assist for left side and back of her hair due to limited AROM and tremors of her hands. OT ADL-Oral Care General Eval Oral Care Ability Moderate Assistance Comments Oral Care Comments Able to build up the handle of toothbrush for the pt to increase ease to hold the toothbrush. Pt able to get her bottom teeth but having difficulty to control the toothbrush to get the top teeth and needing assist. M5 OT- IP IADL's Start: 06/21/21 17:54 Freq: Status: Active Protocol: Document 06/21/21 14:16 [facility] (Rec: 06/21/21 18:22 [facility] [id number]) OT-Instrumental Activities of Daily Living Home Safety Awareness Home Safety Comments Pt has decreased insight to her needs. Pt is very anxious of falling. Medication Management Medication Management Caregiver Administers Money Management Money Management Caregiver Provides Assistance Meal Preparation Meal Preparation Caregiver Provides Assist Surgical Garment Assembly Supervisor Surgical Garment Assembly Supervisor Caregiver Provides Assist Driving Driving Caregiver Provides Assist M6 OT- IP Functional Cognition Start: 06/21/21 17:54 Freq: Status: Active Protocol: Document 06/24/21 11:47 [facility] (Rec: 06/24/21 11:58 [facility] [id number]) Cognitive Factors Limiting Selfcare Function Cognitive Ability Level of Alertness Alert Patient Orientation Name Attention Span Ability Capable of Focused Attention, Capable of Sustained Attention Ability to Follow Commands Able to Follow One Step Commands Cognitive Comments Cognitive Assessment Comments Pt much more alert and able to partake in discussion about current events and results in the Olympics. M8 OT- IP Objective Assessments Start: 06/21/21 17:54 Freq: Status: Active Protocol: Document 06/21/21 14:16 [facility] (Rec: 06/21/21 18:22 [facility] [id number]) OT Gross Range of Motion Upper Extremity Range of Motion Assessment Within Functional Limits OT Strength Upper Extremity Strength Assessment Within Functional Limits OT-Muscle Tone Assessment Muscle Tone WNL No M9 OT- IP Assessment and Plan Start: 06/21/21 17:54 Freq: Status: Active Protocol: Document 06/24/21 11:47 [facility] (Rec: 06/24/21 11:58 [facility] [id number]) OT Summary Assessment and Plan Potential Rehabilitation Potential Fair Analytic Complexity at Evaluation High Summary OT Impairments Pain,Range of Motion,Strength, Balance,Coordination,Tone, Functional Cognition, Functional Mobility,Self- Feeding,Grooming,Dressing, Toileting,Bathing,Activity Tolerance Progress Towards Goals Slow Progress due to Medical Issues,Slow Progress due to Activity Tolerance Assessment Summary Pt able to follow commands better today. Pt looking to go to skilled rehab today. Discharge Recommendations OT Discharge Recommendations SNF Rehab Transportation Needs at Discharge Stretcher/Ambulance
--- NOTE | 2021-06-24 12:24 | PC.NURSE ---
Patients dressing to lower sacral coccyx area has been changed, this is a wet to dry dressing with an allevyn foam in place. She denies pain to area. Repositioned to her foot as she was complaining of discomfort. Patient does have other skin issues that can be seen under physical assessment. She is alert and oriented x3, and will be going to [facility] at 1600.
--- NOTE | 2021-06-27 09:18 | CM.DPNOTE ---
Late entry: Faxed DC summary to [facility] and received fax confirmation. Shara Saenz CM Asst.
== END 2021-06-24 16:14 | DRG 515 ==
LOC: ED 20:34 → AC 21:47
PROVIDERS: Emergency Medicine; Internal Medicine; Specialist; Admitting Provider Nurse Practitioner Family; Emergency Provider Emergency Medicine; PCP Family Medicine; Referring Provider Emergency Medicine; Visit Provider Nurse Practitioner Family
PROC: 0QB10ZZ Excision of Sacrum, Open Approach (ICD-10-PCS; CPT 46040; principal; 2021-06-20 16:15)
DX: M46.28 Osteomyelitis of vertebra, sacral and sacrococcygeal region (principal); L89.154 Pressure ulcer of sacral region, stage 4; E43 Unspecified severe protein-calorie malnutrition; I96 Gangrene, not elsewhere classified; L03.312 Cellulitis of back [any part except buttock and flank]; G20 Parkinson's disease; F02.80 Dementia in other diseases classified elsewhere, unspecified severity, without behavioral disturbance, psychotic disturbance, mood disturbance, and anxiety; I10 Essential (primary) hypertension; E78.5 Hyperlipidemia, unspecified; Z66 Do not resuscitate; Z20.822 Contact with and (suspected) exposure to COVID-19; I95.9 Hypotension, unspecified; Z68.29 Body mass index [BMI] 29.0-29.9, adult
CPT/HCPCS: 11042; 36415; 36569; 72197; 74177; 80048; 80053; 80076; 80202; 81001; 83605; 83690; 83735; 83880; 84145; 85018; 85025; 85027; 85610; 85651; 86140; 87040; 87070; 87077; 87086; 87147; 87205; 87635; 93005; 94760; 96365; 96367; 97162; 97167; 97530; 97535; 99232; 99284; C9803; J0744; J1642; J1650; J2543

== ENCOUNTER → 2021-07-29 11:06 | Outpatient (CLI) | payer OTHER, SELFPAY ==
[2021-06-20 07:50] VITALS: BMI 28.3
== END ==
PROVIDERS: PCP Family Medicine; Referring Provider Specialist; Visit Provider Family Medicine
DX: L89.154 Pressure ulcer of sacral region, stage 4 (principal); M46.28 Osteomyelitis of vertebra, sacral and sacrococcygeal region; M31.9 Necrotizing vasculopathy, unspecified; E46 Unspecified protein-calorie malnutrition; M62.81 Muscle weakness (generalized); J96.11 Chronic respiratory failure with hypoxia; G20 Parkinson's disease; G31.84 Mild cognitive impairment of uncertain or unknown etiology; Z74.09 Other reduced mobility; Z99.3 Dependence on wheelchair; Z99.81 Dependence on supplemental oxygen; Z79.2 Long term (current) use of antibiotics
CPT/HCPCS: 97605; 99204; 99215